=== PATIENT | male | born 1955 | race African-American/Black ===

== ENCOUNTER 2021-02-17 00:28 | Emergency (ER) | payer MEDICARE, SELFPAY ==
[2021-02-17 00:50] VITALS: BP 113/72; PULSE 108; RESP 16; TEMP 37.2; O2SAT 96; BMI 35.6
--- NOTE | 2021-02-17 03:16 | ED_ITS ---
HPI - Male Genitourinary General Chief complaint: Urogenital-Male Stated complaint: cant urinate Time Seen by Provider: 02/17/21 03:13 Source: patient Mode of arrival: ambulatory Limitations: no limitations History of Present Illness HPI Narrative: Patient comes emergency room complaining of taking a long time to urinate. Patient was able to pass urine 30 minutes prior to arrival. Patient states that his urologist started him on Flomax, and has being increasing his dose gradually, however the patient's symptoms keep worsening. Patient denies dysuria or hematuria. Denies penile discharge, testicular pain. Related Data Allergies Allergy/AdvReac Type Severity Reaction Status Date / Time ODIN Inhibitors Allergy Severe ANGIOEDEMA Unverified 03/15/20 14:40 [ODIN INHIBITORS] fish derived Allergy Unknown SWELLING Unverified 03/15/20 14:40 PEANUT BUTTER Allergy Unknown HIVES Uncoded 03/15/20 14:40 Review of Systems Review of Systems: Constitutional : No Weight loss, No Fever, No Chills, No Night Sweats, No Fatigue, No Malaise ENT/Mouth : No Hearing loss, No Ear Pain, No Nasal Congestion, No Sinus Pain, No Hoarseness, No sore throat, No Rhinorrhea, No Swallowing Difficulty Eyes: No Eye Pain, No Swelling, No Redness, No Foreign Body, No Discharge, No Vision Changes Cardiovascular : No Chest Pain, No SOB, No Dyspnea on Exertion, No Orthopnea, No Edema, No Palpitations Respiratory : No Cough, No Sputum, No Wheezing, No Smoke Exposure, No Dyspnea Gastrointestinal : No Nausea, No Vomiting, No Diarrhea, No Constipation, No abdominal Pain, No Hematochezia, No Melena Genitourinary :No Dysuria, No Urinary Frequency, No Hematuria, No Urinary Incontinence, No Urgency, No Flank Pain, gradually becoming harder to start a urinary flow Musculoskeletal : No joint pain, No Myalgias, No Joint Swelling Skin : No Skin Lesions, No rash Neuro : No Weakness, No Numbness, No Paresthesias, No Loss of Consciousness, No Dizziness, No Headache Psych : No Anxiety/Panic, No Depression, No SI/HI/AH/VH, No Social Issues, Heme/Lymph: No Bruising, No Bleeding,No Lymphadenopathy Endocrine : No Polyuria, No Polydipsia, No Temperature Intolerance FOR[facility]LY [facility] Past Medical History Medical History (Updated 08/22/21 @ 05:25 by Nichole Retana MD) BPH (benign prostatic hyperplasia) Social History Social History Advance Directives: No Advance Directives Information Provided: Yes Physical Exam Vital Signs: Vital Signs: Last Vital Signs Temp 98.9 F 02/17/21 00:50 Pulse 108 H 02/17/21 00:50 Resp 16 02/17/21 00:50 BP 113/72 02/17/21 00:50 Pulse Ox 96 02/17/21 00:50 Body Mass Index 35.6 Const: Other: Appearance: Alert. Oriented X3. No acute distress. Eyes: Pupils equal, round and reactive to light. ENT: Pharynx normal. Neck: Normal inspection. Neck supple. No lymph nodes noted. No crepitus CVS: Normal heart rate and rhythm. Pulses normal. Normal S1 and S2 Respiratory: No respiratory distress. Breath sounds normal. No Wheezing. No rales Abdomen: Soft and nontender. No rigidity. No distention. good BS x4 Skin: Skin warm and dry. Normal skin color. Normal skin turgor. Extremities: No lower extremity edema. No Lacerations. No Rash Neuro: Oriented X 3. No motor deficit. No sensory deficit. Moving all extermities. No slurred speech. Course Course Course Narrative: Patient is already taking tamsulosin. Patient is able to urinate every couple of hours. Patient does not have abdominal pain. Patient does move from [place]. Patient needs a urologist. I discussed with the patient that it is likely that he will need a TURP MDM - Male Genitourinary Lab Data Labs: Lab Results 02/17/21 Range/Units 04:48 Urine Color YELLOW Urine Appearance CLEAR Urine pH 6.0 (5.0-8.0) Ur Specific [place] 1.025 (1.005-1.025) Urine Protein NEG (NEG-TRACE) MG/DL Urine Glucose (UA) NEG (NEG) MG/DL Urine Ketones NEG (NEG) MG/DL Urine Blood NEG (NEG) Urine Nitrite NEG (NEG) Ur Leukocyte Esterase NEG (NEG) Discharge Plan Discharge Clinical Impression: Benign prostatic hyperplasia Qualifiers: Lower urinary tract symptom detail: unspecified Patient Disposition: Home, Self-Care Instructions: Enlarged Prostate (BPH) (ED) Additional Instructions: Please follow-up with your primary care physician tomorrow. If you have any worsening or new symptoms, please return to the emergency room or call 911 Referrals: Jared Baldwin MD [Physician] - 2 days
[2021-02-17 04:53] LABS: Glucose Urine UA NEG (NEG); Leukocyte Esterase Urine NEG (NEG); Nitrite Urine NEG (NEG); Specific Gravity - Urine 1.025 (1.005-1.025); Urine Blood NEG (NEG); Urine Ketones NEG (NEG); Urine Protein NEG (NEG-TRACE)
[2021-02-17 04:58] LABS: Appearance Urine CLEAR; Color Urine YELLOW
[2021-02-17 06:00] VITALS: BP 138/80; PULSE 88; RESP 16; O2SAT 100
== END 2021-02-17 06:04 | disposition home or self-care (01) ==
PROVIDERS: Emergency Provider Emergency Medicine
DX: N40.0 Benign prostatic hyperplasia without lower urinary tract symptoms (principal); R33.9 Retention of urine, unspecified
CPT/HCPCS: 51798; 81003; 99284

== ENCOUNTER → 2021-03-22 09:12 | Outpatient (BNVA) | payer MEDICARE, SELFPAY | PROVIDERS: Visit Provider Urology | DX: N40.1 Benign prostatic hyperplasia with lower urinary tract symptoms (principal); R39.12 Poor urinary stream | CPT/HCPCS: 51798; 99202 ==

== ENCOUNTER → 2021-06-20 10:24 | Outpatient (BNVA) | payer MEDICARE, SELFPAY | PROVIDERS: Visit Provider Urology | DX: N40.0 Benign prostatic hyperplasia without lower urinary tract symptoms (principal); R39.12 Poor urinary stream | CPT/HCPCS: 51798; 99212 ==

== ENCOUNTER → 2021-07-24 11:07 | Outpatient (BNVA) | payer BC, SELFPAY | PROVIDERS: Visit Provider Urology | DX: N40.1 Benign prostatic hyperplasia with lower urinary tract symptoms (principal); R39.12 Poor urinary stream | CPT/HCPCS: 52000; 99212 ==

== ENCOUNTER 2021-07-29 12:21 | Emergency (ER) | payer MEDICARE, SELFPAY ==
--- NOTE | ~2021-07-29 | XR_ITS ---
EXAMINATION: XR SHOULDER, LEFT CLINICAL INFORMATION: Left shoulder pain. No injury. COMPARISON: None TECHNIQUE: AP external rotation, Grashey, scapular Y, and axillary views of the left shoulder. FINDINGS: The bones and soft tissues are normal. No fracture. Glenohumeral and acromioclavicular alignment is anatomic with normal joint space. No abnormal soft tissue calcifications. XR/XR shoulder LT min 2V IMPRESSION: Unremarkable left shoulder exam
[2021-07-29 13:41] VITALS: BP 124/77; PULSE 91; RESP 18; TEMP 37; O2SAT 99; BMI 40.1
--- NOTE | 2021-07-29 14:05 | ED_ITS ---
HPI - Extremity Problem General Chief complaint: Extremity Injury, Upper Stated complaint: l arm pain Time Seen by Provider: 07/29/21 16:37 Source: patient Mode of arrival: ambulatory Limitations: no limitations History of Present Illness HPI Narrative: 65-year-old male presents to ED for left shoulder pain that is worse on movement. Patient states he came to the ED for evaluation of left shoulder pain that was present for the past 2 weeks radiating down his left arm last night brizuela resolved. Patient presently denies any radiating shoulder pain down his arm. Patient states presently pain is only in shoulder. Patient denies having any chest pain or shortness of breath. Patient denies any swelling of the upper extremity, hotness, redness, coolness, bluish black discoloration, any blunt trauma to the area. Related Data Home Medications Medication Instructions Recorded Confirmed tamsulosin 0.4 mg capsule (Flomax) 0.8 mg PO DAILY 03/22/21 Previous Rx's Medication Instructions Recorded finasteride 5 mg tablet 5 mg PO DAILY 90 Days #90 tab 03/22/21 terazosin 10 mg capsule 10 mg PO BEDTIME 90 Days #90 cap 03/22/21 naproxen 500 mg tablet 500 mg PO BID PRN 10 Days #20 tab 07/29/21 prednisone 20 mg tablet 40 mg PO DAILY 5 Days #10 tab 07/29/21 Allergies Allergy/AdvReac Type Severity Reaction Status Date / Time ODIN Inhibitors Allergy Severe ANGIOEDEMA Verified 07/24/21 11:08 [ODIN INHIBITORS] fish derived Allergy Unknown SWELLING Verified 07/24/21 11:08 PEANUT BUTTER Allergy Unknown HIVES Uncoded 06/20/21 10:56 Review of Systems Verdana 4l Review of Systems: Verdana 4d Left shoulder Verdana 4d pain Verdana 4d Yes all other systems are reviewed and are negative PMFSH Past Medical History Medical History BPH (benign prostatic hyperplasia) Social History Social History Advance Directives: No Advance Directives Information Provided: No Physical Exam Verdana 4l Vital Signs: Verdana 4d Verdana 4d Vital Signs: Verdana 4d Verdana 4Bd Last Vital Signs Verdana 4d Bill Poster Installer New 4d Bill Poster Installer New 4d Temp 98.6 F 07/29/21 13:41 Bill Poster Installer New 4d Pulse 92 07/29/21 17:49 Bill Poster Installer New 4d Resp 18 07/29/21 17:49 BP 147/91 H 07/29/21 17:49 Pulse Ox 100 07/29/21 17:49 BMI result Body Mass Index 40.1 Const: General: cooperative, healthy appearing, comfortable, no acute distress, well developed, alert and awake Orientation/consciousness: patient oriented x3 HENMT: Head: Yes normal to inspection, Yes No palpable skull fracture present, Yes normocephalic and Yes atraumatic Eyes: General: appearance normal, both eyes and all related structures Neck: Neck: Yes normal visual inspection, Yes full ROM, Yes no lymphadenopathy, Yes no meningeal signs, Yes trachea midline, Yes supple, No anterior neck swelling and No tender Chest: Chest palpation & inspection: normal inspection of the chest and normal palpation of entire chest wall Resp: Effort & Inspection: normal respiratory effort and able to speak in complete sentences Auscultation: clear to auscultation bilaterally Cardio: Jugular venous distension: no JVD Heart sounds: S1 normal heart sound present and S2 normal heart sound present GI: Inspection: Yes normal to inspection and No abdominal wall ecchymosis Palpation (GI): Soft to palpation, not firm, nontender, no guarding and not rigid : General: No CVA tenderness and Yes no CVA tenderness Back/Spine/Pelvis: Back: no CVA tenderness, No CVA tenderness and No back tenderness Skin: General skin exam: no rashes or lesions noted and elasticity normal Neuro: General: patient oriented x3, gait normal, tone normal and no meningeal signs Cranial nerves: Yes CN's II-XII intact bilaterally Extrem: General: Yes normal to inspection and Yes full ROM Shoulder/upper arm images: 1. Positive for tenderness on palpation and range of motion. Left upper extremity negative for redness, swelling, coldness, ecc hymosis, bluish black discoloration, hotness, or deformity. Motor/neuro/vascular exam of left upper extremity intact Psych: Appearance: grossly normal, well kempt and not disheveled Course Course Course Narrative: Most likely patient symptoms are due to showed arthritis but will do cardiac evaluation including shoulder x-ray Reevaluation(s) Reevaluation #1: EKG negative STEMI. Patient's troponin came back negative. Patient sleeping in bed comfortably. Lab shows mild CASPER. Patient prefer oral hydration over IV liquid and then agreeable for repeat chemistry. Time: 14:46 Reevaluation #2: Still waiting for repeat Chemistry. Case signed out to DESEAN gilbert to follow repeat chemistry. Troponin negative after having left shoulder pain for 3 weeks. Not suspecting PE Time: 18:16 MDM - Extremity (Nontraumatic) Lab Data Result diagrams: 07/29/21 14:46 07/29/21 14:46 Labs: Lab Results 07/29/21 07/29/21 07/29/21 Range/Units 14:46 14:46 14:46 WBC 6.6 (4.8-10.8) X10*3/uL RBC 4.94 (4.60-5.80) X10*6/uL Hgb 14.7 (14.0-18.0) g/dl Hct 45.6 (42.0-52.0) % MCV 92.3 (80.0-98.0) fL MCH 29.8 (27.0-33.0) pg MCHC 32.2 (31.0-36.0) g/dl RDW 14.6 (11.0-16.0) % Plt Count 232 (160-400) X10*3/uL MPV 8.5 L (9.4-12.4) fL Immature Gran % (Auto) 0.2 (0.0-0.4) % Neut % (Auto) 57.9 (45-73) % Lymph % (Auto) 25.2 (20-40) % Cache % (Auto) 13.0 H (2-11) % Eos % (Auto) 3.4 (0-4) % Baso % (Auto) 0.3 (0-2) % Lymph # (Auto) 1.7 (1.2-4.9) X10*3/uL Cache # (Auto) 0.9 (0.1-1.2) X10*3/uL Eos # (Auto) 0.2 (0.0-0.4) X10*3/uL Baso # (Auto) 0.0 (0.0-0.2) X10*3/uL Abs Immat Gran (auto) 0.01 (0.00-0.03) X10*3/uL Absolute Neuts (auto) 3.8 (2.0-8.3) x10*3/uL Absolute Nucleated RBC 0.000 (0.0-0.012) X10*3/uL Nucleated RBC % (auto) 0.0 (0.0-0.2) /100WBC PT 10.1 (9.9-13.0) SEC INR 0.9 (0.9-1.1) APTT 32.6 (24.1-38.0) SEC Sodium 139 (135-145) mmol/L Potassium 3.7 (3.3-5.1) mmol/L Chloride 106 (96-108) mmol/L Carbon Dioxide 26 (22-29) mmol/L Anion Gap 11 L (12-20) BUN 20 H (9-16) mg/dL Creatinine 1.65 H (0.5-1.4) mg/dL Estim Creat Clear Calc 60.5 Estimated GFR 42 Random Glucose 121 H (60-115) mg/dL Calcium 9.6 (8.4-10.2) mg/dL Total Bilirubin 0.2 (0.0-1.0) mg/dL AST 12 (5-37) U/L ALT 9 (0-40) U/L Alkaline Phosphatase 80 (39-117) U/L Troponin I High Sens (<3.5-35.0) ng/L Total Protein 7.6 (6.5-8.0) g/dL Albumin 4.0 (3.5-5.0) g/dL 07/29/21 Range/Units 14:46 WBC (4.8-10.8) X10*3/uL RBC (4.60-5.80) X10*6/uL Hgb (14.0-18.0) g/dl Hct (42.0-52.0) % MCV (80.0-98.0) fL MCH (27.0-33.0) pg MCHC (31.0-36.0) g/dl RDW (11.0-16.0) % Plt Count (160-400) X10*3/uL MPV (9.4-12.4) fL Immature Gran % (Auto) (0.0-0.4) % Neut % (Auto) (45-73) % Lymph % (Auto) (20-40) % Cache % (Auto) (2-11) % Eos % (Auto) (0-4) % Baso % (Auto) (0-2) % Lymph # (Auto) (1.2-4.9) X10*3/uL Cache # (Auto) (0.1-1.2) X10*3/uL Eos # (Auto) (0.0-0.4) X10*3/uL Baso # (Auto) (0.0-0.2) X10*3/uL Abs Immat Gran (auto) (0.00-0.03) X10*3/uL Absolute Neuts (auto) (2.0-8.3) x10*3/uL Absolute Nucleated RBC (0.0-0.012) X10*3/uL Nucleated RBC % (auto) (0.0-0.2) /100WBC PT (9.9-13.0) SEC INR (0.9-1.1) APTT (24.1-38.0) SEC Sodium (135-145) mmol/L Potassium (3.3-5.1) mmol/L Chloride (96-108) mmol/L Carbon Dioxide (22-29) mmol/L Anion Gap (12-20) BUN (9-16) mg/dL Creatinine (0.5-1.4) mg/dL Estim Creat Clear Calc Estimated GFR Random Glucose (60-115) mg/dL Calcium (8.4-10.2) mg/dL Total Bilirubin (0.0-1.0) mg/dL AST (5-37) U/L ALT (0-40) U/L Alkaline Phosphatase (39-117) U/L Troponin I High Sens 3.8 (<3.5-35.0) ng/L Total Protein (6.5-8.0) g/dL Albumin (3.5-5.0) g/dL Discharge Plan Discharge Clinical Impression: Left shoulder pain, Acute kidney insufficiency Patient Disposition: Still a Patient Instructions: Impaired Kidney Function (ED), Shoulder Pain (ED) Additional Instructions: Your EKG, and blood work for heart attack came back negative. His shoulder pain persists will need MRI to see if there is any nerve impingement or ligament/rotator cuff/other shoulder muscle injury. You be discharged with pain medication and steroids. Return to the ED for any chest pain, shortness of breath, numbness of left upper extremity, coughing up blood, weakness, dizziness, facial droop, bluish black discoloration, redness, hotness, coldness, paralysis of extremity, or any other concerning symptoms. Please follow-up with primary care provider. Drink plenty of fluids to improve kidney function. Prescriptions: New naproxen 500 mg tablet 500 mg PO BID PRN (Reason: pain) 10 Days Qty: 20 0RF prednisone 20 mg tablet 40 mg PO DAILY 5 Days Qty: 10 0RF No Action tamsulosin [Flomax] 0.4 mg capsule 0.8 mg PO DAILY 0RF finasteride 5 mg tablet 5 mg PO DAILY 90 Days Qty: 90 1RF terazosin 10 mg capsule 10 mg PO BEDTIME 90 Days Qty: 90 1RF Print Language: Maltese
--- NOTE | 2021-07-29 14:08 | ECG_ITS ---
Test Reason : left shoulder pain radiating down left arm Blood Pressure : / mmHG Vent. Rate : 074 BPM Atrial Rate : 074 BPM P-R Int : 146 ms QRS Dur : 104 ms QT Int : 376 ms P-R-T Axes : 000 -28 -28 degrees QTc Int : 417 ms Normal sinus rhythm Moderate voltage criteria for LVH, may be normal variant ( R in aVL , Royal product ) Nonspecific T wave abnormality Abnormal ECG When compared with ECG of 18-SEP-2013 17:58, Nonspecific T wave abnormality, worse in Inferior leads Referred By: Tyler Gonzales Electronically Signed By:RAMONA LOPEZ
[2021-07-29] MEDS: Ibuprofen 800 MG TABLET PO (14:21)
[2021-07-29] MEDS: predniSONE 20 MG TABLET 60 MG PO (14:21)
[2021-07-29 14:54] LABS: MANUAL DIFF FLAG NO
[2021-07-29 15:08] LABS: Basophils Percent Auto 0.3 % (0-2); Eosinophils Absolute Auto 0.2 X10*3/uL (0.0-0.4); Eosinophils Percent Auto 3.4 % (0-4); Hematocrit 45.6 % (42.0-52.0); Hemoglobin 14.7 g/dl (14.0-18.0); Imm Gran Abs Auto 0.01 X10*3/uL (0.00-0.03); Imm Gran Pct Auto 0.2 % (0.0-0.4); Lymphocytes Absolute Auto 1.7 X10*3/uL (1.2-4.9); Lymphocytes Percent Auto 25.2 % (20-40); Mean Corpuscular HGB Conc 32.2 g/dl (31.0-36.0); Mean Corpuscular Hemoglobin 29.8 pg (27.0-33.0); Mean Corpuscular Volume 92.3 fL (80.0-98.0); Mean Platelet Volume 8.5 fL (9.4-12.4); Monocytes Absolute Auto 0.9 X10*3/uL (0.1-1.2); Neutrophils Absolute Auto 3.8 x10*3/uL (2.0-8.3); Neutrophils Percent Auto 57.9 % (45-73); Platelet Count 232 X10*3/uL (160-400); Red Blood Count 4.94 X10*6/uL (4.60-5.80); Red Cell Distribution Width 14.6 % (11.0-16.0); White Blood Count 6.6 X10*3/uL (4.8-10.8)
[2021-07-29 15:09] LABS: INTERNATIONAL NORM RATIO 0.9 (0.9-1.1); Prothrombin Time 10.1 SEC (9.9-13.0)
[2021-07-29 15:12] LABS: Partial Thromboplastin Time 32.6 SEC (24.1-38.0)
[2021-07-29 15:18] LABS: Alanine Aminotransferase 9 U/L (0-40); Alkaline Phosphatase 80 U/L (39-117); Anion Gap 11 (12-20); Aspartate Amino Transferase 12 U/L (5-37); Bilirubin Total 0.2 mg/dL (0.0-1.0); Blood Urea Nitrogen 20 mg/dL (9-16); Calcium 9.6 mg/dL (8.4-10.2); Carbon Dioxide 26 mmol/L (22-29); Chloride 106 mmol/L (96-108); Creatinine Clr Calc Pharmacy 60.5; Estimated Glomerular Filt Rate 42; Glucose Random 121 mg/dL (60-115); Potassium 3.7 mmol/L (3.3-5.1); Sodium 139 mmol/L (135-145); Total Protein 7.6 g/dL (6.5-8.0)
[2021-07-29 15:23] LABS: Troponin-I High Sensitivity 3.8 ng/L (<3.5-35.0)
--- NOTE | 2021-07-29 16:10 | PC.NURSE ---
PT GIVEN 3 WATER PITCHERS AND ENCOURAGED TO DRINK FLUIDS SO WE CAN THEN RECHECK KIDNEY FUNCTION LABS.
[2021-07-29 17:49] VITALS: BP 147/91; PULSE 92; RESP 18; O2SAT 100
--- NOTE | 2021-07-29 18:27 | PC.NURSE ---
UNABLE TO DRAW LABS. WAITING FOR PCT TO COME DRAW.
[2021-07-29 19:41] LABS: Alanine Aminotransferase 12 U/L (0-40); Albumin Level 4.3 g/dL (3.5-5.0); Alkaline Phosphatase 83 U/L (39-117); Anion Gap 13 (12-20); Aspartate Amino Transferase 13 U/L (5-37); Bilirubin Total 0.3 mg/dL (0.0-1.0); Blood Urea Nitrogen 18 mg/dL (9-16); Calcium 9.7 mg/dL (8.4-10.2); Carbon Dioxide 26 mmol/L (22-29); Chloride 102 mmol/L (96-108); Estimated Glomerular Filt Rate 47; Glucose Random 168 mg/dL (60-115); Potassium 4.3 mmol/L (3.3-5.1); Sodium 137 mmol/L (135-145)
== END 2021-07-29 20:04 | disposition home or self-care (01) ==
PROVIDERS: Physician Assistant; Emergency Provider Emergency Medicine
DX: M25.512 Pain in left shoulder (principal); N17.9 Acute kidney failure, unspecified
CPT/HCPCS: 36415; 73030; 80053; 84484; 85025; 85610; 85730; 93005; 99283; 99284

== ENCOUNTER → 2021-08-26 09:34 | Day surgery (SDC) | payer MEDICARE, BC, SELFPAY ==
[2021-08-16 13:11] VITALS: BMI 35.2
--- NOTE | 2021-08-23 12:18 | P.CONAN_ITS ---
HPI - Anesthesia Eval Consult details Narrative: Cx'd DOS d/t recent drug use. 65yo M for Laser Ablation Prostate w/Green Light PMFSH Active Problems Active Problems: All Active Problems (Updated 08/16/21 @ 13:20 by Katlyn Walker, RN) Weak urinary stream (Acute) BPH (benign prostatic hyperplasia) (Acute) Past Medical History Medical History (Updated 09/03/21 @ 10:37 by Katlyn Walker RN) BPH (benign prostatic hyperplasia) History of back pain HTN (hypertension) Hx of drug abuse Hx of tuberculosis Shoulder pain Smoker Tooth ache Surgical History Surgical History (Updated 08/16/21 @ 13:10 by Katlyn Walker RN) History of foot surgery History of shoulder surgery History of umbilical hernia repair Social History Social History Household Members Other:: resides in Room @[facility] Other:: living in a room right now - to go to a hotel post op - per patient Are you a primary direct support professional caregiver to a significant other at home: No Do you presently have visiting nurse or other home services: No Patient Tobacco Use Status: Current everyday Tobacco user Tobacco use type: Cigarette Cigarette Packs Per Day: 0.5 Cigarettes Per Day: 10.0 Years Smoked: 58 Meds Allergies Allergy/AdvReac Type Severity Reaction Status Date / Time ODIN Inhibitors Allergy Severe ANGIOEDEMA Verified 09/03/21 10:38 [ODIN INHIBITORS] fish derived Allergy Unknown SWELLING Verified 09/03/21 10:38 PEANUT BUTTER Allergy Unknown HIVES Uncoded 09/03/21 10:38 Exam Exam Date and Time: August 23, 2021 1218 Height,Weight and Vital Signs: Height 6 ft Weight 117.934 kg Assessment and Plan Assessment Anesthesia Assessment: Chart Reviewed
[2021-08-26 09:53] VITALS: BP 148/87; PULSE 94; RESP 19; TEMP 36.6; O2SAT 98
[2021-08-26] MEDS: Lactated Ringers 1,000 ML 100 ML IVCONT (10:17)
--- NOTE | 2021-08-26 11:30 | PC.NURSE ---
pt is rescheduling sts did crack thursday or thursday and is going to be positive anesthesia and dr woodward aware
== END ==
PROVIDERS: Visit Provider Urology
DX: N40.0 Benign prostatic hyperplasia without lower urinary tract symptoms (principal); Z53.29 Procedure and treatment not carried out because of patient's decision for other reasons
CPT/HCPCS: J1956

== ENCOUNTER → 2022-01-10 11:03 | Outpatient (BNVA) | payer MEDICARE, SELFPAY | PROVIDERS: Visit Provider Urology | DX: N40.1 Benign prostatic hyperplasia with lower urinary tract symptoms (principal); N13.8 Other obstructive and reflux uropathy; R39.12 Poor urinary stream; Z79.899 Other long term (current) drug therapy | CPT/HCPCS: 51798; 99212 ==

== ENCOUNTER → 2022-04-04 10:23 | Outpatient (BNVA) | payer MEDICARE, SELFPAY | PROVIDERS: Visit Provider Urology | DX: N40.1 Benign prostatic hyperplasia with lower urinary tract symptoms (principal); R39.12 Poor urinary stream | CPT/HCPCS: Q3014 ==

== ENCOUNTER → 2022-04-21 06:50 | Day surgery (SDC) | payer MEDICARE, SELFPAY ==
[2022-04-15 13:45] VITALS: BMI 34.9
--- NOTE | 2022-04-18 10:34 | P.CONAN_ITS ---
Documented by User: Elizabeth Montalvo NP 04/18/22 10:34 HPI - Anesthesia Eval Consult details Narrative: 66yo M for Laser Ablation Prostate w/Green Light PMFSH Active Problems Active Problems: All Active Problems (Updated 04/15/22 @ 13:39 by Anjali Painting RN) Weak urinary stream (Acute) BPH (benign prostatic hyperplasia) (Acute) Past Medical History Medical History BPH (benign prostatic hyperplasia) History of back pain HTN (hypertension) Hx of drug abuse Hx of tuberculosis Shoulder pain Smoker Surgical History Surgical History History of foot surgery History of shoulder surgery History of umbilical hernia repair Social History Social History Household Members Other:: lives with sister at this time Housing Other:: living in a room right now - to go to a hotel post op - per p atient Are you a primary care management coordinator to a significant other at home: No Do you presently have visiting nurse or other home services: No Patient Tobacco Use Status: Current everyday Tobacco user Tobacco use type: Cigarette Cigarette Packs Per Day: 0.5 Cigarettes Per Day: 10 Years Smoked: 58 Use of substances other than those prescribed or required for medical reasons: Yes Substance Use Frequency: Weekly Have you been hit, kicked, punched, or otherwise hurt by someone within the past year? If so, by whom?: No Are you DNR?: No Advance Directives: No Advance Directives Information Provided: Yes (brochure mailed) Advance Directives on File: No Recently lost weight without trying: No Eating poorly because of decreased appetite: No Nutrition Risks: No Nutritional Risk Meds Allergies Allergy/AdvReac Type Severity Reaction Status Date / Time ODIN Inhibitors Allergy Severe ANGIOEDEMA Verified 04/04/22 10:25 [ODIN INHIBITORS] fish derived Allergy Intermediate SWELLING Verified 04/15/22 13:32 Peanut Butter Allergy Intermediate Hives Verified 04/15/22 13:32 Home Medications Medication Instructions Recorded Confirmed Last Taken Type albuterol sulfate 90 mcg/actuation 2 puff inhalation Q4H 04/04/22 Unknown History aerosol inhaler Exam Exam Date and Time: April 18, 2022 1034 Height,Weight and Vital Signs: Height 6 ft Weight 117 kg Assessment and Plan Assessment Anesthesia Assessment: Chart Reviewed Documented by User: Asher Tidwell MD 04/21/22 07:39 PMFSH Past Medical History Medical History BPH (benign prostatic hyperplasia) History of back pain HTN (hypertension) Hx of drug abuse Hx of tuberculosis Shoulder pain Smoker Family History Family history of problems with anesthesia: No Surgical History Surgical History History of foot surgery History of shoulder surgery History of umbilical hernia repair History of Problems with Anesthesia: No Social History Social History Household Members Other:: lives with sister at this time Housing Other:: living in a room right now - to go to a hotel post op - per patient Are you a primary care management coordinator to a significant other at home: No Do you presently have visiting nurse or other home services: No Patient Tobacco Use Status: Current everyday Tobacco user Tobacco use type: Cigarette Cigarette Packs Per Day: 0.5 Cigarettes Per Day: 10 Years Smoked: 58 Use of substances other than those prescribed or required for medical reasons: Yes Substance Use Frequency: Weekly Have you been hit, kicked, punched, or otherwise hurt by someone within the past year? If so, by whom?: No Are you DNR?: No Advance Directives: No Advance Directives Information Provided: Yes (brochure mailed) Advance Directives on File: No Recently lost weight without trying: No Eating poorly because of decreased appetite: No Nutrition Risks: No Nutritional Risk Meds Allergies Allergy/AdvReac Type Severity Reaction Status Date / Time ODIN Inhibitors Allergy Severe ANGIOEDEMA Verified 04/04/22 10:25 [ODIN INHIBITORS] fish derived Allergy Intermediate SWELLING Verified 04/15/22 13:32 Peanut Butter Allergy Intermediate Hives Verified 04/15/22 13:32 Home Medications Medication Instructions Recorded Confirmed Last Taken Type albuterol sulfate 90 mcg/actuation 2 puff inhalation Q4H 04/04/22 Unknown History aerosol inhaler Exam Airway Mallampati Class: III TM Dist: >3cm Neck ROM: Full Loose/Missing/Broken Teeth: No Heart: rrr Lungs: clear Assessment and Plan Final Anesthetic Review Family History of Problems with Anesthesia: No History of Problems with Anesthesia: No NPO: Yes ASA Class: II Final Preanesthetic Review: Meds/Allgs Chart Reviewed and Anes Risks/Benef Reviewed Patient Risk: Intermediate Procedure Risk: Low Anesthetic Plan Anesthetic Plan: GA Disposition: Standard PACU
[2022-04-21 07:09] VITALS: BP 171/80; PULSE 62; RESP 18; TEMP 36.4; O2SAT 98
--- NOTE | 2022-04-21 07:13 | PC.NURSE ---
pt c/o not feeling well. denied sob luings clear bilat nasal congestion.
[2022-04-21 07:15] VITALS: BMI 28.2
--- NOTE | 2022-04-21 07:20 | MHC.SHP ---
Pre-Procedural Eval Section A Date of Service: 04/21/22 The patient is an INPATIENT: No Changes since office visit: No Cold of Flu in the past 2 weeks, No New Medical Problems, No Changes in Medication and No Patient answered all questions The History & Physical has been completed within 30 days and I have reviewed it.: No Section B Chief Complaint: bph Details of Present Illness: Plan for laser prostatetomy Relevant Family History (Specify if Yes): No Relevant Social History: None Present Medications: see Short Stay Collaborative assessment Medical History: Significant History History of Previous Operations: No relevant previous surgery Allergies: Allergies Allergy/AdvReac Type Severity Reaction Status Date / Time ODIN Inhibitors Allergy Severe ANGIOEDEMA Verified 04/04/22 10:25 [ODIN INHIBITORS] fish derived Allergy Intermediate SWELLING Verified 04/15/22 13:32 Peanut Butter Allergy Intermediate Hives Verified 04/15/22 13:32 Review of Systems Sugical H&P ROS: Negative: Constitution, Cardiovascular, Respiratory, Neurological, Psychiatric, Hem-Onc, Allergic/Immunologic, Gastrointestinal, Genitourinary, Musculoskeletal, Integumentary, Endocrine and Eyes/Ears/Nose/Throat Exam Surgical H&P Exam: Normal: HEENT, Normal: Heart, Normal: Lungs, Normal: Extremities, Normal: Abdomen, Normal: Skin and Normal: Neurological Plan Diagnosis/Plan: Unchanged (laqser prostatectomy) I have reviewed the history and physical and performed a pertinent physical examination on my patient. No changes have occurred unless specified.
[2022-04-21] MEDS: Lactated Ringers 1,000 ML 100 ML IVCONT (07:40)
[2022-04-21 07:52] LABS: COVID-19 Test Invalid (Negative); IDNOW Serial# 16C4AD1C
--- NOTE | 2022-04-21 07:55 | PC.NURSE ---
call placed to chemistry for estimated time of utox & covid sample results. invalid x 2 separate trials. pt re-swabbed & personally hand carried to lab. Dr. Tidwell aware.
[2022-04-21 08:27] LABS: Amphetamine Screen Urine Not Detected (Not Detect); Barbiturates, Urine Not Detected (Not Detect); Benzodiazepines Screen Urine Not Detected (Not Detect); Cannabinoid Screen Urine Not Detected (Not Detect); Cocaine Screen Urine POSITIVE (Not Detect); Fentanyl, urine POSITIVE (Not Detect); Opiate Screen Urine Not Detected (Not Detect); Phencyclidine Screen Urine Not Detected (Not Detect)
[2022-04-21 08:37] LABS: COVID-19 Test Invalid (Negative)
--- NOTE | 2022-04-21 09:01 | PC.NURSE ---
0830, utox + fentanyl +cocaine. Dr. Tidwell/anesthesia spoke with pt. case cancelled. pt self removed iv - bleeding. dsd applied & escorted out.
== END ==
PROVIDERS: Anesthesiology; Nurse Practitioner; Visit Provider Urology
DX: N40.1 Benign prostatic hyperplasia with lower urinary tract symptoms (principal); Z53.8 Procedure and treatment not carried out for other reasons; R39.12 Poor urinary stream; F14.10 Cocaine abuse, uncomplicated; Z79.899 Other long term (current) drug therapy; Z20.822 Contact with and (suspected) exposure to COVID-19
CPT/HCPCS: 80307; 87635; J1100; J1956; J2250; J2405; J3010

== ENCOUNTER → 2022-11-26 15:25 | Outpatient (BNVA) | payer MEDICARE, SELFPAY | PROVIDERS: Visit Provider Urology ==

== ENCOUNTER 2023-04-05 19:59 | Emergency (ER) | payer OTHER, SELFPAY ==
[2023-04-05 20:16] VITALS: BP 130/89; PULSE 85; O2SAT 96
[2023-04-05 20:17] VITALS: BP 145/55; PULSE 76; RESP 20; TEMP 36.9; O2SAT 96; BMI 37.0
[2023-04-05 21:14] VITALS: BP 152/70; PULSE 76; RESP 16; TEMP 36.8; O2SAT 94
--- NOTE | 2023-04-05 21:17 | ED.OVERDOSE ---
HPI - Overdose General Chief Complaint: Overdose Stated Complaint: overdose, pt stated smoked crack laced, per ems Time Seen by Provider: 04/05/23 21:13 Source: patient and EMS Mode of arrival: EMS Limitations: no limitations History of Present Illness HPI Narrative: 67-year-old male came in by ambulance after was found in his car unresponsive. Patient was given Narcan 4 mg by police and was transported to the hospital. Patient here admit to using cocaine by sniffing, no CP or SOB. Patient now is arousable answering question has no CP, no SOB, no abdominal pain, no SI, no HI. Patient would like to be discharged on to his friend's house. Related Data Home Medications Medication Instructions Recorded Confirmed albuterol sulfate 90 mcg/actuation 2 puff inhalation Q4H 04/04/22 05/05/22 aerosol inhaler Previous Rx's Medication Instructions Recorded tamsulosin 0.4 mg capsule (Flomax) 0.4 mg PO DAILY #30 caps 08/23/21 finasteride 5 mg tablet 5 mg PO DAILY 90 days #90 tabs 01/10/22 terazosin 10 mg capsule 10 mg PO BEDTIME 90 days #90 caps 02/06/23 Allergies Allergy/AdvReac Type Severity Reaction Status Date / Time ODIN Inhibitors Allergy Severe ANGIOEDEMA Verified 04/04/22 10:25 [ODIN INHIBITORS] fish derived Allergy Intermediate SWELLING Verified 04/15/22 13:32 Peanut Butter Allergy Intermediate Hives Verified 04/15/22 13:32 Review of Systems Review of Systems: All other systems are reviewed and are negative Constitutional: Reports as per HPI and Reports no additional constitutional complaints Eyes: Reports as per HPI and Reports no additional eye complaints Reports system reviewed and no additional complaints, except as documented Cardiovascular: Reports as per HPI and Reports no additional cardiovascular complaints Respiratory: Reports as per HPI and Reports no additional respiratory complaints Gastrointestinal: Reports as per HPI and Reports no additional gastrointestinal complaints Genitourinary: Reports no additional female genitourinary complaints Musculoskeletal: Reports no additional musculoskeletal complaints Skin/Breast: Reports system reviewed and no additional complaints, except as docu Psychiatric: Reports no additional psychiatric complaints Endocrine: Reports no additional endocrine complaints Hematologic/Lymphatic: Reports no additional hematologic/lymphatic complaints Allergic/Immunologic: Reports no additional allergic/immunologic complaints Reports system reviewed and no additional complaints, except as documented and Reports Abnormal speech present [facility] Past Medical History Medical History Hx of drug abuse Shoulder pain Smoker Hx of tuberculosis History of back pain HTN (hypertension) BPH (benign prostatic hyperplasia) Surgical History History of umbilical hernia repair History of shoulder surgery History of foot surgery Social History Social History Household Members Other:: lives with sister at this time Housing Other:: living in a room right now - to go to a hotel post op - per patient Are you a primary healthcare management to a significant other at home: No Do you presently have visiting nurse or other home services: No Alcohol intake: current Alcohol intake frequency: 0-2 drinks per day Alcohol type: hard liquor Patient Tobacco Use Status: Current everyday Tobacco user Tobacco use type: Cigarette Cigarette Packs Per Day: 0.5 Cigarettes Per Day: 10 Years Smoked: 58 Substance Use Type: Crack/Cocaine and Heroin Physical Exam Vital Signs: Vital Signs: Last Vital Signs Temp 98.3 F 04/05/23 21:14 Pulse 76 04/05/23 21:14 Resp 16 04/05/23 21:14 BP 152/70 H 04/05/23 21:14 Pulse Ox 94 04/05/23 21:14 O2 Del Method Room Air 04/05/23 21:14 BMI result Body Mass Index 37.0 Vital signs have been reviewed and appear to be correct. Blood pressure elevated. Heart rate normal. Respiratory rate normal. Temperature normal. Oxygen saturation normal. Appearance: Alert. Oriented X3. No acute distress. Head: Normal external exam. Normocephalic. Atraumatic. No Aguilar signs noted. No raccoon eyes noted Eyes: PERRLA. EOMI. Conjunctiva and sclera normal. Eyelids normal. ENT: TM's Normal. Pharynx normal. Uvula midline. Moist mucous membranes. No trismus noted. No drooling noted. No muffled voice noted. Neck: Normal inspection. Neck supple. FROM. No adenopathy. Thyroid Normal. No meningeal signs. No neck mass noted. CVS: Normal heart rate and rhythm. Heart sound normal. No murmurs noted. Pulses normal throughout. Respiratory: No respiratory distress. Painless inspiration. Breath sounds normal. No wheezes/rales/rhonchi noted. Chest nontender. No accessory muscle usage noted or decreased air movement noted. Abdomen: Soft and nontender. Bowel sounds normal in all 4 quadrants. No distention noted. No organomegaly noted. No visible injury noted. Back: No CVA tenderness. Full range of motion noted. Skin: Skin warm and dry. Normal skin color. Normal skin turgor. No rashes/lesions/lacerations noted. Extremities: No lower extremity edema. Extremities exhibit normal range of motion. Extremities nontender. Neuro: Oriented X 3. Cranial nerve exam: II-XII are grossly intact No motor deficit. No sensory deficit. Reflexes normal. Course Course Course Narrative: 67-year-old male came in by ambulance after was found overdosed on his car, patient now is awake, alert, oriented x3 no CP no SOB no SI no HI patient would like to be discharged to his friend's house. Medical Decision Making Differential Diagnosis Differential Diagnoses: The differential diagnosis associated with the presentation includes (Substance abuse, overdose.) Admission/Observation Consideration of admission/observation: Escalation of care including admission/observation considered Discharge Plan Discharge Clinical Impression: Drug overdose, Cocaine intoxication Patient Disposition: Home, Self-Care Instructions: Cocaine Abuse (ED) Prescriptions: No Action tamsulosin [Flomax] 0.4 mg capsule 0.4 mg PO DAILY Qty: 30 0RF terazosin 10 mg capsule 10 mg PO BEDTIME 90 Days Qty: 90 0RF albuterol sulfate 90 mcg/actuation HFA aerosol inhaler 2 puff inhalation Q4H finasteride 5 mg tablet 5 mg PO DAILY 90 Days Qty: 90 1RF
--- NOTE | 2023-04-05 21:20 | PC.NURSE ---
tech able to obtain ekg; attending reviewed.
--- NOTE | 2023-04-05 22:40 | PC.NURSE ---
pt axox4, vss, states had felt not me while driving after using crack. pt states he had pulled over, was not the one to call 911. pt remembers interations here with security/this RN. calm/cooperative at this time. pt denies si/hi; states im done using this is too dangerous. denies questions/concerns at this time. call st within reach.
[2023-04-05 23:42] VITALS: BP 140/60; PULSE 75; RESP 17; O2SAT 92
== END 2023-04-06 00:15 | disposition home or self-care (01) ==
PROVIDERS: Emergency Provider Emergency Medicine
DX: T40.5X1A Poisoning by cocaine, accidental (unintentional), initial encounter (principal); F14.129 Cocaine abuse with intoxication, unspecified; R94.31 Abnormal electrocardiogram [ECG] [EKG]; Y92.9 Unspecified place or not applicable; Z79.899 Other long term (current) drug therapy; F17.210 Nicotine dependence, cigarettes, uncomplicated; Z71.6 Tobacco abuse counseling; Z71.51 Drug abuse counseling and surveillance of drug abuser; Z20.822 Contact with and (suspected) exposure to COVID-19; Z11.52 Encounter for screening for COVID-19
CPT/HCPCS: 0241U; 93005; 99285

== ENCOUNTER 2023-04-23 11:42 | Outpatient (AMB) | payer OTHER, SELFPAY ==
--- NOTE | 2023-04-23 11:50 | MHC.OFFVIS ---
Intake Intake Visit Reasons: Medication follow up/BPH Allergies ODIN Inhibitors [OIDN INHIBITORS] Allergy (Severe, Verified 04/04/22 10:25) ANGIOEDEMA fish derived Allergy (Intermediate, Verified 04/15/22 13:32) SWELLING Peanut Butter Allergy (Intermediate, Verified 04/15/22 13:32) Hives Medication List - Last Reconciled 04/23/23 by Jared Baldwin MD albuterol sulfate 90 mcg/actuation 2 puffs inhalation Q4H finasteride 5 mg PO DAILY 90 days tamsulosin (Flomax) 0.4 mg PO DAILY terazosin 10 mg PO BEDTIME 90 days HPI HPI Comments History of Present Illness Details Ed is a pleasant male. He is seen for following urologic conditions - urinary retention - BPH Telemedicine evaluation 15 minute consultation Novinda martine Video attempted He is up in [place] in area of lockdown Plan procedure had being canceled as he used cocaine prior to surgery Has urologist in [place] Feel stream is getting weaker Needs to take terazosin and finasteride and tamsulosin altogether Check cystoscopy shows large apple shaped prostate with trilobar narrowing refill terazosin Lower urinary tract symptoms Baseline had been on Flomax for many years Seen in emergency room for weakness of stream and partial retention Changed to terazosin 10 mg with finasteride Has persistent symptoms Is currently back living in area as son is going through legal difficulty [facility] Medical History Hx of drug abuse Shoulder pain Smoker Hx of tuberculosis History of back pain HTN (hypertension) BPH (benign prostatic hyperplasia) Surgical History History of umbilical hernia repair History of shoulder surgery History of foot surgery Social History Household Members Other:: lives with sister at this time Housing Other:: living in a room right now - to go to a hotel post op - per patient Are you a primary childcare worker to a significant other at home: No Do you presently have visiting nurse or other home services: No Alcohol intake: current Alcohol intake frequency: 0-2 drinks per day Alcohol type: hard liquor Patient Tobacco Use Status: Current everyday Tobacco user Tobacco use type: Cigarette Cigarette Packs Per Day: 0.5 Cigarettes Per Day: 10 Years Smoked: 58 Substance Use Type: Crack/Cocaine and Heroin Review of Systems Const All systems reviewed & are unremarkable except as noted in HPI and below Reports no additional complaints Resp Reports no additional complaints GI Reports no additional complaints Reports as per HPI Musc Reports no additional complaints Physical Exam Telemedicine evaluation Appropriate responses Regular breathing rate and rhythm HEENT Head: Yes normal to inspection Ears: hearing grossly normal bilaterally Eyes General: appearance normal, both eyes and all related structures Neck Neck: Yes normal visual inspection Chest Chest palpation & inspection: normal inspection of the chest Resp Effort & Inspection: normal respiratory effort and able to speak in complete sentences Assessment & Plan Assessment & Plan (1) BPH (benign prostatic hyperplasia): Code(s): N40.0 - Benign prostatic hyperplasia without lower urinary tract symptoms (2) Weak urinary stream: Code(s): R39.12 - Poor urinary stream Plan renewal provided Medications: Refilled terazosin 10 mg PO BEDTIME 90 caps 0RF 90 days N40.0 - Benign prostatic hyperplasia without lower urinary tract symptoms Patient Instructions: Imaging studies, laboratory and physical exam results were discussed and reviewed in detail. No major barriers to patient understanding were identified. An opportunity to ask questions regarding the treatment plan was provided. All questions were answered. The patient expressed understanding and agreement with the above treatment plan. The patient is aware they should contact our office by phone for worsening of their current condition or the appearance of new urologic symptoms. Compliance is encouraged with any medications and followup testing that is ordered. It is a privilege to participate in the urologic care of your patient. If you have any questions or concerns regarding treatment for the above conditions, or other urologic issues, please do not hesitate to contact me. The office telephone contact is [phone]. This note is constructed using voice recognition software. While every effort has been made to ensure accuracy distribution lead errors may have been included. Yours sincerely, Dr Jared Baldwin MD, [facility] - Urology Providers of Expert, Compassionate Care for the Genitourinary System Telehealth Telehealth Location of provider rendering services: practice address Location of patient: address on file Patient Identification confirmed using: Name, : Yes Telehealth method: voice only Patient verbally consented to treatment: Yes Patient verbally consented to billing insurance company: Yes Patient informed of any privacy concerns related to visit: Yes Coding Level of Care Code Tele Est Pt Level 3 (09612) Diagnoses BPH (benign prostatic hyperplasia) N40.0 Weak urinary stream R39.12
== END 2023-04-23 14:08 | disposition home or self-care (01) ==
LOC: HO.HUSH 11:42
PROVIDERS: Visit Provider Urology
DX: N40.0 Benign prostatic hyperplasia without lower urinary tract symptoms (principal); R39.12 Poor urinary stream
CPT/HCPCS: 99442

== ENCOUNTER → 2023-04-23 11:42 | Outpatient (BNVA) | payer OTHER, SELFPAY | PROVIDERS: Visit Provider Urology ==

== ENCOUNTER 2023-07-24 10:19 | Outpatient (AMB) | payer OTHER, SELFPAY ==
--- NOTE | 2023-07-24 10:42 | A.OFFVIS_ITS ---
Intake Intake Visit Reasons: 3M PVR Intake Note: Patient is Present for Follow Up Urology Medication: Finasteride, Tamsulosin, Terazosin Antibiotic Allergies: none Blood Thinners: None PVR: 21 Patient states that he did not have surgery that was suggested by Dr Baldwin in past due to drug use. Patient states that recently his had . Patient wants to discuss surgery options again and informed that he will be starting detox and will avoid drug use so he can have surgery done Allergies ODIN Inhibitors [ODIN INHIBITORS] Allergy (Severe, Verified 07/24/23 10:43) ANGIOEDEMA fish derived Allergy (Intermediate, Verified 07/24/23 10:43) SWELLING Peanut Butter Allergy (Intermediate, Verified 07/24/23 10:43) Hives Medication List - Last Reconciled 07/24/23 by Jared Baldwin MD albuterol sulfate 90 mcg/actuation 2 puffs inhalation Q4H finasteride 5 mg PO DAILY 90 days tamsulosin (Flomax) 0.4 mg PO DAILY terazosin 10 mg PO BEDTIME 90 days HPI HPI Comments History of Present Illness Details Ed is a pleasant male. He is seen for following urologic conditions - urinary retention - BPH PVR remains low 21 Could continue current medications Plan procedure had being canceled as he used cocaine prior to surgery Has urologist in [place] Feel stream is getting weaker Needs to take terazosin and finasteride and tamsulosin altogether Check cystoscopy shows large apple shaped prostate with trilobar narrowing Lower urinary tract symptoms Baseline had been on Flomax for many years Seen in emergency room for weakness of stream and partial retention Changed to terazosin 10 mg with finasteride Has persistent symptoms Is currently back living in area as son is going through legal difficulty [facility] Medical History Hx of drug abuse Shoulder pain Smoker Hx of tuberculosis History of back pain HTN (hypertension) BPH (benign prostatic hyperplasia) Surgical History History of umbilical hernia repair History of shoulder surgery History of foot surgery Social History Household Members Other:: lives with sister at this time Housing Other:: living in a room right now - to go to a hotel post op - per patient Are you a primary critical care unit nurse to a significant other at home: No Do you presently have visiting nurse or other home services: No Alcohol intake: current Alcohol intake frequency: 0-2 drinks per day Alcohol type: hard liquor Patient Tobacco Use Status: Current everyday Tobacco user Tobacco use type: Cigarette Cigarette Packs Per Day: 0.5 Cigarettes Per Day: 10 Years Smoked: 58 Substance Use Type: Crack/Cocaine and Heroin Review of Systems Const Denies chills and Denies fever(s) Card Reports no additional complaints and Denies syncope Resp Denies cough GI Denies abdominal pain and Denies heartburn Reports as per HPI and Denies change in libido Neuro Denies syncope Psych Denies change in libido Endo Denies change in libido Physical Exam Const General: cooperative, healthy appearing, comfortable and no acute distress Orientation/consciousness: patient oriented x3 HEENT Face and sinus: Yes normal facial exam Mouth: moist mucous membranes Neck Neck: Yes normal visual inspection, Yes full ROM and Yes trachea midline Chest Chest palpation & inspection: normal inspection of the chest Resp Effort & Inspection: normal respiratory effort, able to speak in complete sentences and no respiratory distress GI Inspection: Yes normal to inspection Back/Spine/Pelvis Cervical Spine: normal cervical lordosis Thoracic/Lumbar Spine: thoracic and lumbar spine normal to inspection Skin General skin exam: no rashes or lesions noted Neuro General: patient oriented x3, gait normal, tone normal and moves all extremities Extrem General: Yes normal to inspection and Yes capillary refill normal Office Procedures Post Void Residual Post Residual Void Post Void Residual (PVR): 21 [id number] Void Residual by ultrasound Assessment & Plan Assessment & Plan (1) BPH (benign prostatic hyperplasia): Code(s): N40.0 - Benign prostatic hyperplasia without lower urinary tract symptoms (2) Weak urinary stream: Code(s): R39.12 - Poor urinary stream Plan Six month follow-up PSA PVR Orders: Orders PSA,Total (Free>4and<10) 6 Months N40.0 - Benign prostatic hyperplasia without lower urinary tract symptoms AMB Post Void Residual by ultrasound 07/24/23 N40.0 - Benign prostatic hyperplasia without lower urinary tract symptoms Patient Instructions: Imaging studies, laboratory and physical exam results were discussed and reviewed in detail. No major barriers to patient understanding were identified. An opportunity to ask questions regarding the treatment plan was provided. All questions were answered. The patient expressed understanding and agreement with the above treatment plan. The patient is aware they should contact our office by phone for worsening of their current condition or the appearance of new urologic symptoms. Compliance is encouraged with any medications and followup testing that is ordered. It is a privilege to participate in the urologic care of your patient. If you have any questions or concerns regarding treatment for the above conditions, or other urologic issues, please do not hesitate to contact me. The office telephone contact is [phone]. This note is constructed using voice recognition software. While every effort has been made to ensure accuracy call center support representative errors may have been included. Yours sincerely, Dr Jared Baldwin MD, [facility] - Urology Providers of Expert, Compassionate Care for the Genitourinary System Coding Level of Care Code Est Pt Level 3 (72914) Diagnoses BPH (benign prostatic hyperplasia) N40.0 Weak urinary stream R39.12 CPT Codes Post Residual Void - PVR CPT Code: 17604-[id number] Void Residual by ultrasound ([id number])
== END 2023-07-24 11:25 | disposition home or self-care (01) ==
PROVIDERS: Visit Provider Urology
DX: N40.0 Benign prostatic hyperplasia without lower urinary tract symptoms (principal); R39.12 Poor urinary stream
CPT/HCPCS: 99213

== ENCOUNTER → 2023-07-24 10:19 | Outpatient (BNVA) | payer OTHER, SELFPAY | PROVIDERS: Visit Provider Urology | DX: N40.1 Benign prostatic hyperplasia with lower urinary tract symptoms (principal); R39.12 Poor urinary stream | CPT/HCPCS: 51798; 99212 ==

== ENCOUNTER 2024-02-16 11:08 | Emergency (ER) | payer OTHER, SELFPAY ==
[2024-02-16 11:26] VITALS: BP 141/85; PULSE 96; RESP 18; TEMP 37; O2SAT 97; BMI 36.1
--- NOTE | 2024-02-16 11:29 | ED.GENADULT ---
HPI - General Adult General Stated complaint: Fall 12/19 - back pain Related Data Home Medications ?Medication ?Instructions ?Recorded ?Confirmed albuterol sulfate 90 mcg/actuation 2 puff inhalation Q4H 04/04/22 07/24/23 aerosol inhaler Previous Rx's ?Medication ?Instructions ?Recorded tamsulosin 0.4 mg capsule (Flomax) 0.4 mg PO DAILY #30 caps 08/23/21 finasteride 5 mg tablet 5 mg PO DAILY 90 days #90 tabs 07/24/23 terazosin 10 mg capsule 10 mg PO BEDTIME 90 days #90 caps 07/24/23 Allergies Allergy/AdvReac Type Severity Reaction Status Date / Time ODIN Inhibitors Allergy Severe ANGIOEDEMA Verified 02/16/24 11:31 [ODIN INHIBITORS] fish derived Allergy Intermediate SWELLING Verified 02/16/24 11:31 Peanut Butter Allergy Intermediate Hives Verified 02/16/24 11:31 PMFSH Past Medical History Medical History Hx of drug abuse Shoulder pain Smoker Hx of tuberculosis History of back pain HTN (hypertension) BPH (benign prostatic hyperplasia) Surgical History History of umbilical hernia repair History of shoulder surgery History of foot surgery Social History Social History Household Members Other:: lives with sister at this time Housing Other:: living in a room right now - to go to a hotel post op - per patient Are you a primary health care social worker to a significant other at home: No Do you presently have visiting nurse or other home services: No Alcohol intake: current Alcohol intake frequency: 0-2 drinks per day Alcohol type: hard liquor Patient Tobacco Use Status: Current everyday Tobacco user Tobacco use type: Cigarette Cigarette Packs Per Day: 0.5 Cigarettes Per Day: 10 Years Smoked: 58 Substance Use Type: Crack/Cocaine and Heroin Course Course Course Narrative: RME, this is a rapid medical exam performed by Lito Auguste please refer to primary provider for complete H&P- 68 year old male presents for evaluation of left lower back pain after a fall 2 months ago. He reports slipping and falling while incarcerated. He reports negative x-rays at [place]. He reports pain to his left lower back radiating down into his left leg. Denies numbness and tingling. He reports difficulty urinating, but admits that has been ongoing since prior to the injury and has not had any change since the injury. He follows with Dr Baldwin. Discharge Plan Discharge Prescriptions: No Action tamsulosin [Flomax] 0.4 mg capsule 0.4 mg PO DAILY Qty: 30 0RF albuterol sulfate 90 mcg/actuation HFA aerosol inhaler 2 puff inhalation Q4H finasteride 5 mg tablet 5 mg PO DAILY 90 Days Qty: 90 1RF terazosin 10 mg capsule 10 mg PO BEDTIME 90 Days Qty: 90 1RF Print Language: Lithuanian
== END 2024-02-16 13:38 | disposition left against medical advice (07) ==
PROVIDERS: Emergency Provider Emergency Medicine
DX: M54.50 Low back pain, unspecified (principal); F17.200 Nicotine dependence, unspecified, uncomplicated; F14.10 Cocaine abuse, uncomplicated; Z79.899 Other long term (current) drug therapy
CPT/HCPCS: 99281

== ENCOUNTER 2024-07-15 13:55 | Outpatient (AMB) | payer MEDICARE, MEDICAID, SELFPAY ==
--- NOTE | 2024-07-15 13:56 | MHC.OFFVIS ---
Intake Visit Reasons: PVR Follow up(Needs PSA) Intake Note: Patient is present for PVR F/U Urology Medication:TAMSULOSIN,FINASTERIDE,TERAZOSIN Antibiotic Allergy:NONE Blood Thinner:NONE Last PVR:21ML'S Todays PVR:28ML'S Toolsmith Required: No Allergies ODIN Inhibitors [ODIN INHIBITORS] Allergy (Severe, Verified 07/15/24 13:58) ANGIOEDEMA fish derived Allergy (Intermediate, Verified 07/15/24 13:58) SWELLING Peanut Butter Allergy (Intermediate, Verified 07/15/24 13:58) Hives HPI Comments Details: Ed is a pleasant male. He is seen for following urologic conditions - urinary retention - BPH PVR remains low 21 Could continue current medications Plan procedure had being canceled as he used cocaine prior to surgery He would like to move ahead with procedure. He has doubling up on terazosin which is causing dizziness. Has urologist in [place] Feel stream is getting weaker Needs to take terazosin and finasteride and tamsulosin altogether Check cystoscopy shows large apple shaped prostate with trilobar narrowing Did ask if could refill his albuterol inhaler Lower urinary tract symptoms Baseline had been on Flomax for many years Seen in emergency room for weakness of stream and partial retention Changed to terazosin 10 mg with finasteride Has persistent symptoms Is currently back living in area as son is going through legal difficulty [facility], [facility] Medical History Hx of drug abuse Shoulder pain Smoker Hx of tuberculosis History of back pain HTN (hypertension) BPH (benign prostatic hyperplasia) Surgical History History of umbilical hernia repair History of shoulder surgery History of foot surgery Social History Household Members Other:: lives with sister at this time Housing Other:: living in a room right now - to go to a hotel post op - per patient Are you a primary health care / medical job titles to a significant other at home: No Do you presently have visiting nurse or other home services: No Alcohol intake: current Alcohol intake frequency: 0-2 drinks per day Alcohol type: hard liquor Patient Tobacco Use Status: Current everyday Tobacco user Tobacco use type: Cigarette Cigarette Packs Per Day: 0.5 Cigarettes Per Day: 10 Years Smoked: 58 Substance Use Type: Crack/Cocaine and Heroin Review of Systems Const Denies chills and Denies fever(s) Card Reports no additional complaints and Denies syncope Resp Denies cough GI Denies abdominal pain and Denies heartburn Reports as per HPI and Denies change in libido Neuro Denies syncope Psych Denies change in libido Endo Denies change in libido Physical Exam Const General: cooperative, healthy appearing, comfortable and no acute distress Orientation/consciousness: patient oriented x3 HEENT Face and sinus: Yes normal facial exam Mouth: moist mucous membranes Neck Neck: Yes normal visual inspection, Yes full ROM and Yes trachea midline Chest Chest palpation & inspection: normal inspection of the chest Resp Effort & Inspection: normal respiratory effort, able to speak in complete sentences and no respiratory distress GI Inspection: Yes normal to inspection Back/Spine/Pelvis Cervical Spine: normal cervical lordosis Thoracic/Lumbar Spine: thoracic and lumbar spine normal to inspection Skin General skin exam: no rashes or lesions noted Neuro General: patient oriented x3, gait normal, tone normal and moves all extremities Extrem General: Yes normal to inspection and Yes capillary refill normal Office Procedures Post Void Residual Post Residual Void Post Void Residual (PVR): 28 [id number] Void Residual by ultrasound Results AMB Urinalysis, Automated UA Leukoctes 0 Lb/uL Last Edit by ILIR Fields on 07/15/24 14:14 UA Nitrite Negative Last Edit by ILIR Fielsd on 07/15/24 14:14 UA Urobilinogen 0.2 mg/dL Last Edit by ILIR Fields on 07/15/24 14:14 UA Protein 15 mg/dL Last Edit by ILIR Fields on 07/15/24 14:14 UA pH 6.0 Last Edit by ILIR Fields on 07/15/24 14:14 UA Blood 10 Rafa/uL Last Edit by ILIR Fields on 07/15/24 14:14 UA Specific [place] 1.020 Last Edit by ILIR Fields on 07/15/24 14:14 UA Ketone Negative Last Edit by ILIR Fields on 07/15/24 14:14 UA Bilirubin 0 mg/dL Last Edit by ILIR Fields on 07/15/24 14:14 UA Glucose 0 mg/dL Last Edit by ILIR Fields on 07/15/24 14:14 Results Reviewed Results Reviewed: Laboratory Last Values Urine pH (Auto) 6.0 07/15/24 14:14 Specific [place] (Auto) 1.020 07/15/24 14:14 Urine Protein (Auto) 15 mg/dL 07/15/24 14:14 Glucose (UA)(Auto) 0 mg/dL 07/15/24 14:14 Urine Ketones (Auto) Negative 07/15/24 14:14 Urine Blood (Auto) 10 Rafa/uL 07/15/24 14:14 Urine Nitrite (Auto) Negative 07/15/24 14:14 Urine Bilirubin (Auto) 0 mg/dL 07/15/24 14:14 Urine Urobilinogen (Auto) 0.2 mg/dL 07/15/24 14:14 Leukocyte Esterase (Auto) 0 Lb/uL 07/15/24 14:14 Assessment & Plan Assessment & Plan (1) BPH (benign prostatic hyperplasia): Code(s): N40.0 - Benign prostatic hyperplasia without lower urinary tract symptoms Category: Medical (2) Weak urinary stream: Code(s): R39.12 - Poor urinary stream Category: Medical Plan Risks, benefits and alternatives to therapy were discussed. These include but are not limited to infection, bleeding, damage to local organs and tissues, need for further interventions. Anesthetic risks regarding cardiac arrhythmia, blood clots, and potential mortality were discussed. The patient understands the typical recovery time and the outpatient nature of the procedure. After consideration of these risks the patient gives full informed consent and they wish to move ahead with the procedure. GreenLight laser prostatectomy Orders: Orders AMB Urinalysis Automated Today Z13.9 - Encounter for screening, unspecified Medications: Changed From albuterol sulfate 90 mcg/actuation 2 puffs inhalation Q4H To albuterol sulfate 90 mcg/actuation 2 puffs inhalation Q4H PRN 6.7 grams 0RF bronchospasm Patient Instructions: Imaging studies, laboratory and physical exam results were discussed and reviewed in detail. No major barriers to patient understanding were identified. An opportunity to ask questions regarding the treatment plan was provided. All questions were answered. The patient expressed understanding and agreement with the above treatment plan. The patient is aware they should contact our office by phone for worsening of their current condition or the appearance of new urologic symptoms. Compliance is encouraged with any medications and followup testing that is ordered. It is a privilege to participate in the urologic care of your patient. If you have any questions or concerns regarding treatment for the above conditions, or other urologic issues, please do not hesitate to contact me. The office telephone contact is [phone]. This note is constructed using voice recognition software. While every effort has been made to ensure accuracy media supervisor errors may have been included. Yours sincerely, Dr Jared Baldwin MD, [facility] - Urology Providers of Expert, Compassionate Care for the Genitourinary System Coding Level of Care Code Est Pt Level 4 (89125) Diagnoses BPH (benign prostatic hyperplasia) N40.0 Weak urinary stream R39.12 CPT Codes Post Residual Void - PVR CPT Code: 96880-Lfyh Void Residual by ultrasound ([id number])
== END 2024-07-15 14:23 | disposition home or self-care (01) ==
LOC: HO.HUSH 13:55
PROVIDERS: Visit Provider Urology
DX: N40.0 Benign prostatic hyperplasia without lower urinary tract symptoms (principal); R39.12 Poor urinary stream; Z13.9 Encounter for screening, unspecified
CPT/HCPCS: 99214

== ENCOUNTER → 2024-07-15 13:55 | Outpatient (BNVA) | payer MEDICARE, MEDICAID, SELFPAY | PROVIDERS: Visit Provider Urology | DX: N40.0 Benign prostatic hyperplasia without lower urinary tract symptoms (principal); R39.12 Poor urinary stream | CPT/HCPCS: 51798; 81003; 99212 ==

== ENCOUNTER 2024-09-19 10:06 | Day surgery (SDC) | payer MEDICARE, MEDICAID, SELFPAY ==
--- OUTSIDE RECORDS SUMMARY | 2024-08-22 12:48 | XMS_ITS | Encounter Summary ---
Author Organization [employer] Address [address] [facility] 7 [place] [address] Care Team Providers Care Transmission Superintendent Name Role Phone Unavailable Primary Care Provider Unavailabl e Reason for Visit * Reason Onset Date Comments medication 06/26/2023 Encounter Details Date Type Department Care Team (Late Contact Info) Description 06/26/2023 Telephone [facility] ADULT DENTAL [address] [place], [place] [phone] Inés Obrien DDS [address] [place], [place] [phone] medication Social History Tobacco Use Types Packs/Day Years Used Date Smoking Tobacco: Some Days Cigarettes Passive Smoke Exposure: Current Alcohol Use Standard Drinks/Week Comments Defer 0 (1 standard drink = 0.6 oz pur e alcohol) Sex and Gender Information Value Date Recorded Sex Assigned at Male 04/28/2022 10:24 AM EDT Legal Sex Male 10:24 AM EDT Gender Identity Choose not to disclose 10:24 AM EDT Sexual Orientation Choose not to disclose 2021 10:24 AM EDT documented as of this encounter Miscellaneous Notes * Telephone Encounter - Courtney De [place] - 06/26/2023 12:39 PM EST Script was sent to the pharmacy that patient had on [facility] [address] in [place]. He stated it should have gone to [facility]. I have updated the pharmacy in patient chart. [facility]sresend to [facility] in [place] documented in this encounter Plan of Treatment Upcoming Encounters Date Type Department Care Team ([facility] Contact [facility]) Description 08/30/2024 3:00 PM EST Office Visit [facility] ADULT DENTAL [address] [place], [place] [phone] Ricardo Martell [address] [place] [id number] documented as of this encounter Visit Diagnoses Not on filedocumented in this encounter
--- OUTSIDE RECORDS SUMMARY | 2024-08-22 12:48 | XMS_ITS | Encounter Summary ---
Author Organization [employer] Address [address] [place] [address] [place] [address] Care Team Providers Care Salesperson [employer] Furnish[employer] Name Role Phone Unavailable Primary Care Provider Unavailabl e Reason for Visit * Reason Onset Date Comments New patient appt. 07/25/2024 Encounter Details Date Type Department Care Team (Late Contact Info) Description 07/25/2024 Telephone [facility] MEDICINE [address] [place] [address] Rik Munguia MD [address] [place] [address] New patient appt. Social History Tobacco Use Types Packs/Day Years [...] encounter Miscellaneous Notes * Telephone Encounter - Norma Toribio - 07/25/2024 3:43 PM EST Outgoing call to pt to book [facility] appt. No answer. Left message. documented in this encounter Plan of Treatment Upcoming Encounters Date Type Department Care Team (Late Contact Info) Description 08/30/2024 3:00 PM EST Office Visit [facility] ADULT DENTAL [address] [place], [place] [phone] Ricardo Martell [address] [place], [place] [phone] documented as of this encounter Visit Diagnoses Not on filedocumented in this encounter
--- OUTSIDE RECORDS SUMMARY | 2024-08-22 12:48 | XMS_ITS | Clinical Summary ---
Author Organization [employer] Address [address] [place] [address] 7 [place] [address] Care Team Providers Care Upkeep Worker Name Role Phone Unavailable Primary Care Provider Unavailabl e Allergies Active Allergy Reactions Criticality Noted Date Comments Flavoring Agent (Non-Screening) 05/30 Fish Allergy 06/26/2023 Peanut Butter Flavoring Agen t (Non-Screening) 06/26/2023 Medications terazosin (Hytrin) 1 MG capsule Take 1 mg by mouth at bedtime. Active Encounters Date Type Department Care Team Description 07/25/2024 [place] [address] Rik Munguia MD New patient appt. 07/19/[address] [address] Rik Munguia MD Appointment Request from Last 3 Months Social History Tobacco Use Types Packs/Day Years Used Date Smoking Tobacco: Some Days Cigarettes Passive Smoke Exposure: Current Tobacco Cessation:Ready to Q uit: Not Asked; Counseling Given: Not Answered Alcohol Use Standard Drinks/Week Comments Defer 0 (1 standard drink = 0.6 oz pur e alcohol) Sex and Gender Information Value Date Recorded Sex Assigned at Male 04/28/2022 10:24 AM EDT Legal Sex Male 10:24 AM EDT Gender Identity Choose not to disclose 10:24 AM EDT Sexual Orientation Choose not to disclose 2021 10:24 AM EDT Last Filed Vital Signs Vital Sign Reading Time Taken Comments Blood Pressure 142/68 10/09/2023 11:06 AM EDT Pulse 76 10/09/2023 11:06 AM EDT Temperature - - Respiratory Rate - - Oxygen Saturation - - Inhaled Oxygen Concentration - - Weight - - Height - - Body Mass Index - - Plan of Treatment Upcoming Encounters Date Type Department Care Team (Late st Contact Info) Description 08/30/2024 3:00 PM EST Office Visit [facility] ADULT DENTAL [address] [place] [address] Ricardo Martell [address] [place] [address] Health Maintenance Due Date Last Done Comments CT Colonography 1956 Colonoscopy 1956 Colorectal Cancer Screening 1956 Depression Screening 1956 FIT DNA/Cologuard 1956 FIT 1956 FOBT 1956 Lipid Panel 1956 SDOH Screening 1956 Sigmoidoscopy 1956 Alcohol/Substance Use Screening 1968 Hepatitis C Screening 1974 DTaP/Tdap/Td Vaccines (1 - Tdap) 09/23/1975 Pneumococcal Vaccine: 50+ Years (1 of 2 - PCV) 09/23/1975 Zoster Vaccines (1 of 2) 2006 COVID-19 Vaccine (1 - 2023-2 5 season) 2024 Influenza Vaccine (#1) 2024 Dental Oral Exam 03/25/2024 2023, 01/07/2012 Dental Prophylaxis 04/10/2024 10/09/2023 Dental X-Ray: Bitewings 2024 2023 Tobacco Screening 11/05/2024 11/06/2023 Dental X-Ray: Full Mouth 2026 2023 RSV Patients and Patients Aged 60 years or older (1 - 1-dose 75+ series) 09/23/2031 HIB Vaccines Aged Out No longer eligi ble based on patient's age to complete this topic HPV Vaccines Aged Out No longer eligi ble based on patient's age to complete this topic Hepatitis A Vaccines Aged Out No long er eligible based on patient's age to complete this topic Hepatitis B Vaccines Aged Out No long er eligible based on patient's age to complete this topic IPV Vaccines Aged Out No longer eligi ble based on patient's age to complete this topic Meningococcal Vaccine Aged Out No kailee katelynn eligible based on patient's age to complete this topic RSV under 20 months Aged Out No longe r eligible based on patient's age to complete this topic Rotavirus Vaccines Aged Out No longer eligible based on patient's age to complete this topic Procedures Procedure Name Priority Date/Time Associated Diagnosis Comments PROPHYLAXIS - ADULT Routine 10/09/2023 1 1:00 AM EDT INTRAORAL - COMPLETE SERIES OF RADIOGRAPHIC IMAGES Routine 2023 11:00 AM EDT COMPREHENSIVE ORAL EVALUATION - NEW OR ESTABLISHED PATIENT Routine 2023 11:00 AM EDT from Last 3 Months or Most Recently Relevant to Health Maintenance Insurance [employer] PPO
[2024-09-15 12:35] VITALS: BMI 35.3
--- NOTE | 2024-09-16 08:58 | HO.ANESPROP2 ---
Documented by User: Elizabeth Montalvo NP 09/16/24 08:59 HPI - Anesthesia Eval Consult details Narrative: 68yo M for Laser Ablation Prostate w/Green Light PMFSH Active Problems Active Problems: All Active Problems Weak urinary stream (Acute) BPH (benign prostatic hyperplasia) (Acute) Past Medical History Medical History (Updated 09/15/24 @ 12:46 by Anjali Painting RN) Back pain Hx of drug abuse Shoulder pain Smoker Hx of tuberculosis HTN (hypertension) BPH (benign prostatic hyperplasia) Family History Family history of problems with anesthesia: No Surgical History Surgical History (Updated 09/15/24 @ 12:34 by Anjali Painting RN) History of umbilical hernia repair History of shoulder surgery History of foot surgery History of Problems with Anesthesia: No Social History Social History (Updated 09/15/24 @ 12:38 by Ajnali Painting RN) Are you a primary home health caregiver to a significant other at home: No Do you presently have visiting nurse or other home services: No Alcohol intake: current Alcohol intake frequency: 0-2 drinks per day Alcohol type: hard liquor Patient Tobacco Use Status: Current everyday Tobacco user Tobacco use type: Cigarette Cigarette Packs Per Day: 0.5 Cigarettes Per Day: 3 Years Smoked: 58 Substance Use Type: Crack/Cocaine, Former Substance User and Heroin Substance Use Type Other:: denies drug use since 2022 Have you been hit, kicked, punched, or otherwise hurt by someone within the past year? If so, by whom?: No Spiritual Healthcare Practices: none Jewish Healthcare Practices: none Cultural Healthcare Practices: none Are you DNR?: No Advance Directives: No Advance Directives Information Provided: Yes Advance Directives on File: No Recently lost weight without trying: No Eating poorly because of decreased appetite: No Nutrition Risks: No Nutritional Risk Poor oral hygiene: Yes (one broken tooth-upper) Meds Allergies Allergy/AdvReac Type Severity Reaction Status Date / Time ODIN Inhibitors Allergy Severe ANGIOEDEMA Verified 07/15/24 13:58 [ODIN INHIBITORS] fish derived Allergy Intermediate SWELLING Verified 07/15/24 13:58 Peanut Butter Allergy Intermediate Hives Verified 07/15/24 13:58 Home Medications ?Medication ?Instructions ?Recorded ?Confirmed ?Last Taken ?Type albuterol sulfate 90 mcg/actuation 2 puff inhalation Q4H PRN 09/15/24 09/15/24 Unknown History aerosol inhaler bronchospasm/smokers cough Exam Height,Weight and Vital Signs: Height 6 ft Weight 117.934 kg Assessment and Plan Assessment Anesthesia Assessment: Chart Reviewed Final Anesthetic Review Family History of Problems with Anesthesia: No History of Problems with Anesthesia: No Documented by User: Terry Mendoza MD 09/19/24 11:00 PMFSH Past Medical History Medical History (Updated 09/15/24 @ 12:46 by Anjali Painting RN) Back pain Hx of drug abuse Shoulder pain Smoker Hx of tuberculosis HTN (hypertension) BPH (benign prostatic hyperplasia) Surgical History Surgical History (Updated 09/15/24 @ 12:34 by Anjali Painting RN) History of umbilical hernia repair History of shoulder surgery History of foot surgery Social History Social History (Updated 09/15/24 @ 12:38 by Anjali Painting RN) Are you a primary home health caregiver to a significant other at home: No Do you presently have visiting nurse or other home services: No Alcohol intake: current Alcohol intake frequency: 0-2 drinks per day Alcohol type: hard liquor Patient Tobacco Use Status: Current everyday Tobacco user Tobacco use type: Cigarette Cigarette Packs Per Day: 0.5 Cigarettes Per Day: 3 Years Smoked: 58 Substance Use Type: Crack/Cocaine, Former Substance User and Heroin Substance Use Type Other:: denies drug use since 2022 Have you been hit, kicked, punched, or otherwise hurt by someone within the past year? If so, by whom?: No Spiritual Healthcare Practices: none Jewish Healthcare Practices: none Cultural Healthcare Practices: none Are you DNR?: No Advance Directives: No Advance Directives Information Provided: Yes Advance Directives on File: No Recently lost weight without trying: No Eating poorly because of decreased appetite: No Nutrition Risks: No Nutritional Risk Poor oral hygiene: Yes (one broken tooth-upper) Meds Allergies Allergy/AdvReac Type Severity Reaction Status Date / Time ODIN Inhibitors Allergy Severe ANGIOEDEMA Verified 07/15/24 13:58 [ODIN INHIBITORS] fish derived Allergy Intermediate SWELLING Verified 07/15/24 13:58 Peanut Butter Allergy Intermediate Hives Verified 07/15/24 13:58 Home Medications ?Medication ?Instructions ?Recorded ?Confirmed ?Last Taken ?Type albuterol sulfate 90 mcg/actuation 2 puff inhalation Q4H PRN 09/15/24 09/15/24 Unknown History aerosol inhaler bronchospasm/smokers cough Exam Airway Mallampati Class: II TM Dist: >3cm Neck ROM: Full Loose/Missing/Broken Teeth: Yes, Upper and Lower Heart: ok Lungs: ok Assessment and Plan Assessment Anesthesia Assessment: Anesthesia Plan Discussed Final Anesthetic Review NPO: Yes ASA Class: III Final Preanesthetic Review: No Changes in Pt Med Stat, Meds/Allgs Chart Reviewed, Consent Obtained/Reviewed and Anes Risks/Benef Reviewed Patient Risk: Intermediate Procedure Risk: Low Anesthetic Plan Anesthetic Plan: GA and Agree w/ Assess. and Plan Disposition: Standard PACU
[2024-09-19] VITALS (7 sets, daily range): BP systolic 124–147; BP diastolic 54–88; PULSE 82–103; RESP 16–20; TEMP 36.6–36.7; O2SAT 97–99; BMI 34.4
[2024-09-19] MEDS: Lactated Ringers 1,000 ML 100 ML IVCONT (10:51)
[2024-09-19 10:53] LABS: Amphetamine Screen Urine Not Detected (Not Detect); Barbiturates, Urine Not Detected (Not Detect); Benzodiazepines Screen Urine Not Detected (Not Detect); Buprenorphine Scr Not Detected (Not Detect); Cannabinoid Screen Urine POSITIVE (Not Detect); Cocaine Screen Urine Not Detected (Not Detect); Fentanyl, urine Not Detected (Not Detect); Methadone Screen, Urine Not Detected (Not Detect); Opiate Screen Urine Not Detected (Not Detect); Oxycodone Screen Urine Not Detected (Not Detect); Phencyclidine Screen Urine Not Detected (Not Detect)
--- NOTE | 2024-09-19 11:00 | P.HPSUR_ITS ---
Pre-Procedural Eval Section A - 24 Hr Update-Section A only Date of Service: 09/19/24 The patient is an INPATIENT: No Changes since office visit: No Cold of Flu in the past 2 weeks, No New Medical Problems, No Changes in Medication and No Patient answered all questions The patient has been examined within 24 hours of the surgical procedure. The History & Physical has been completed within 30 days and I have reviewed it.: No Section B - Complete if H&P > 30 days Chief Complaint: Benign prostatic hyperplasia with lower urinary tr Details of Present Illness: GreenLight laser prostatectomy Relevant Social History: Other (specify) Present Medications: see Short Stay Collaborative assessment Medical History: No relevant PMH History of Previous Operations: No relevant previous surgery Allergies: Allergies Allergy/AdvReac Type Severity Reaction Status Date / Time ODIN Inhibitors Allergy Severe ANGIOEDEMA Verified 07/15/24 13:58 [ODIN INHIBITORS] fish derived Allergy Intermediate SWELLING Verified 07/15/24 13:58 Peanut Butter Allergy Intermediate Hives Verified 07/15/24 13:58 Review of Systems Sugical H&P ROS: Negative: Constitution, Cardiovascular, Respiratory, Neurologi [place], Psychiatric, Hem-Onc, Allergic/Immunologic, Gastrointestinal, Genitourinary, Musculoskeletal, Integumentary, Endocrine and Eyes/Ears/Nose/Throat Exam Surgical H&P Exam: Normal: HEENT, Normal: Heart, Normal: Lungs, Normal: Extremities, Normal: Abdomen, Normal: Skin and Normal: Neurological Plan Diagnosis/Plan: Unchanged (GreenLight laser prostatectomy) I have reviewed the history and physical and performed a pertinent physical examination on my patient. No changes have occurred unless specified. Time Spent With Patient Time: Total time managing care of this patient today ____ minutes.
[2024-09-19] MEDS: ceFAZolin Sodium/Dextrose,Iso 2 GM/50 ML PIGGYBACK IV (11:05)
--- NOTE | 2024-09-19 12:06 | W.PM.OPN ---
Operative Note Operative Note Date of Service: 09/19/24 Narrative: PreOperative Diagnosis: Bladder outlet obstruction Post Operative Diagnosis: Bladder outlet obstruction Procedure: GreenLight Laser Enucleation of the prostate CPT 07108 Surgeon: Dr Jared Baldwin Anesthesia: General History of bladder outlet obstruction. Treated with alpha-pool and other medications. Still with symptoms. On cystoscopy in office has tight bladder neck. Recommendation for prostate procedure with laser enucleation of prostate. Risks and benefits have been discussed. Focus was placed on development of retrograde ejaculation which is a normal part of this procedure. Procedure: After informed consent was verified the patient was brought to the operating room and placed in a supine position. Anesthesia was administered per protocol. Patient was placed in modified dorsal lithotomy position and prepped and draped in a sterile fashion. Safety pause time-out was confirmed. Antibiotics have been given. A Twenty-four Citizen [place] laser cystoscope was inserted per urethra. No abnormalities were found of the anterior and bulbar urethra. The prostatic urethra shows tight bladder neck . The bladder was examined and both ureteric orifices were seen in their normal positions away from the area of interest. Bladder trabeculation Grade 2 with left J hooking intersuception. Using a GreenLight laser with initial settings of 80 arenas incisions were made at the 5 and 7 o'clock position. The incisions were taken down from the bladder neck down to the area just proximal of the veru. These were gradually deepened in order to define the lateral aspects of the median lobe area. The deep boundary of enucleation was defined by the prostate surgical capsule. Once clearly defined the grooves were extended in the lateral directions in order to create a deep groove. The median lobe was then ablated and enucleated tissue released into the bladder with the laser power increased to 120 W. Smaller lobe. Once the median lobe area had been cleared, attention was directed to the lateral lobes. Starting with the patient's left lateral lobe. First the 05:00 o'clock groove was further developed. This was moved in the lateral direction to undermine the tissue on the lateral side running from the bladder neck to the prostate apex. The ureteric orifice was used to guide incisions. The laser fiber was placed at the 1 o'clock position and a secondary groove was developed down to the level of prostatic capsule. The creation of a second deep groove defined a segment of intervening tissue similar to a slice of orange. At the apex of the prostate the laser was used to vertically link the two grooves releasing the intervening tissue and creating a segment of tissue. This tissue was then removed with a combination of enucleation and ablation working from the apex toward the bladder neck. A similar procedure was repeated on the patient's right-hand side. The only differences being the position of the lateral groove at he 7 o'clock position and the secondary groove at the 11 o'clock position, Otherwise the procedure was developed in a mirror fashion. After the majority of tissue had been debulked remnant tissue was ablated with the side fire laser and the curve of the prostate followed up each side wall clearly defining the anterior remnant strip that remained between the 11 and 1 o'clock positions. At completion debris and pieces of prostate were removed from the bladder with irrigation. Both ureteric orifices were reviewed again in shown to be patent in away from any areas of energy damage. The apical area was reviewed and any stray mucosal ooze was controlled. A 22 Citizen [place] 30 cc balloon Curry catheter was placed into the bladder using a flexible stylet. Clear efflux was obtained upon irrigation with a Thierry piston syringe. 30 cc was placed in the balloon and gentle traction was placed. A snap was used to hold tension on the catheter to control bleeding during patient moved and transported. A drainage bag was placed. Once transportation is complete to the PACU the snap will be removed. The patient tolerated the procedure well, he was extubated in the operating and transferred in a stable condition to the recovery area. Total Power 99 kW Lasing time 14:52 Pathology: Prostate tissue Drains: Curry catheter
[2024-09-19] MEDS: fentaNYL citrate/PF 100 MCG/2 ML VIAL 50 MCG IVPUSH (12:07)
[2024-09-19] MEDS: oxyCODONE HCl Immed Release 5 MG TABLET PO (12:12)
[2024-09-19] MEDS: Phenazopyridine HCL 100 MG TABLET PO (12:12)
[2024-09-19] MEDS: Acetaminophen 325 MG TABLET 975 MG PO (12:17)
== END 2024-09-19 14:12 | disposition home or self-care (01) ==
PROVIDERS: Nurse Practitioner; Visit Provider Urology
PROC: (CPT 52648; principal; 2024-09-19 10:30)
DX: N40.1 Benign prostatic hyperplasia with lower urinary tract symptoms (principal); N13.8 Other obstructive and reflux uropathy; R33.8 Other retention of urine; R39.12 Poor urinary stream; I10 Essential (primary) hypertension; Z86.11 Personal history of tuberculosis; Z79.899 Other long term (current) drug therapy; Z88.8 Allergy status to other drugs, medicaments and biological substances; Z91.018 Allergy to other foods; F12.90 Cannabis use, unspecified, uncomplicated; F14.11 Cocaine abuse, in remission; F11.11 Opioid abuse, in remission; F17.210 Nicotine dependence, cigarettes, uncomplicated; Z98.890 Other specified postprocedural states
CPT/HCPCS: 52649; 80307; 88305; J0690; J2003; J2371; J2704; J3010

== ENCOUNTER → 2024-09-19 10:06 | Outpatient (BNV) | payer MEDICARE, MEDICAID, SELFPAY | PROVIDERS: Visit Provider Urology | DX: N32.0 Bladder-neck obstruction (principal) | CPT/HCPCS: 52649 ==

== ENCOUNTER → 2024-09-21 10:29 | Outpatient (BNVA) | payer MEDICARE, SELFPAY | PROVIDERS: Visit Provider Urology | DX: N40.1 Benign prostatic hyperplasia with lower urinary tract symptoms (principal); R39.12 Poor urinary stream | CPT/HCPCS: 51700; 51798 ==

== ENCOUNTER 2024-10-24 12:44 | Emergency (ER) | payer MEDICARE, SELFPAY ==
--- NOTE | ~2024-10-24 | US_ITS ---
EXAMINATION: US TRIPLEX LOWER EXTREMITY, LEFT CLINICAL INFORMATION: Left lower extremity pain. COMPARISON: None available. TECHNIQUE: Color-flow triplex imaging with spectral analysis and compression Doppler were performed on the left lower extremity. FINDINGS: Respiratory variation, normal compression and augmented flow are noted throughout the left lower extremity. The visualized common femoral vein, superficial femoral vein, profunda femoral vein, popliteal vein and midcalf peroneal and posterior tibial venous segments show no evidence of deep venous thrombosis. There is no Vasquez's cyst. US/US venous duplex LE LT IMPRESSION: No evidence of deep venous thrombosis involving the left lower extremity. Electronically signed by: Otto Weston MD 10/24/2024 02:45 PM EDT
--- NOTE | ~2024-10-24 | XR_ITS ---
EXAMINATION: XR KNEE, LEFT CLINICAL INFORMATION: pain COMPARISON: None available. TECHNIQUE: Four views of the left knee. FINDINGS: No fracture, dislocation, or suspicious bone lesion. Normal bone mineralization. Normal alignment. Minimal medial compartment osteoarthritis. Lateral and patellofemoral compartments are preserved. Enthesopathic calcification just abutting the inferior pole of the patella. No significant joint effusion. Soft tissues appear normal. XR/XR knee LT 3V IMPRESSION: 1. No acute bony abnormality. No joint effusion. 2. Minimal medial compartment osteoarthritis. Electronically signed by: Otto Weston MD 10/24/2024 01:16 PM EDT
[2024-10-24 12:48] VITALS: BP 152/85; PULSE 100; RESP 18; TEMP 36.7; O2SAT 98; BMI 32.9
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
[2024-10-24 16:03] VITALS: BP 152/85; PULSE 100; RESP 18; TEMP 36.7; O2SAT 98
--- OUTSIDE RECORDS SUMMARY | 2024-10-24 18:18 | XMS_ITS | Encounter Summary ---
Author Organization [employer] Address [address] [place] [address] Care Team Providers Care Greenstone Polisher Operator Name Role Phone Unavailable Primary Care Provider Unavailabl e Reason for Visit * Reason Onset Date Comments medication 06/26/2023 Encounter Details Date Type Department Care Team (Late st Contact Info) Description 06/26/2023 Telephone [facility] ADULT DENTAL [address] [place] [address] Inés Obrien DDS [address] [place] [address] medication Social History Tobacco Use Types Packs/Day [...] the pharmacy that patient [facility] in [place]. He stated it should have gone to [facility]. I have updated the pharmacy in patient chart. Plsresend to [facility] in [place] documented in this encounter Plan of Treatment Not on file documented as of this encounter Visit Diagnoses Not on filedocumented in this encounter
--- OUTSIDE RECORDS SUMMARY | 2024-10-24 18:18 | XMS_ITS | Clinical Summary ---
Author Organization [employer] Address [address] [place] [address] [address] [place] [address] Care Team Providers Care Leasing Agent Name Role Phone Unavailable Primary Care Provider Unavailabl e Allergies Active Allergy Reactions Criticality Noted Date Comments Flavoring Agent (Non-Screening) 05/30 Fish Allergy 06/26/2023 Peanut Butter Flavoring Agen t (Non-Screening) 06/26/2023 Medications terazosin (Hytrin) 1 MG capsule Take 1 mg by mouth at bedtime. Active Active Problems Problem Noted Date Diagnosed Date Known health problems: none 08/30/2024 Encounters Date Type Department Care Team Description 08/30/2024 3:00 PM EST Office Visit [facility] ADULT D[facility]AL [address] [place] [address] Ricardo Martell Known health problems: none (Primary Dx) from Last 3 Months Social History Tobacco [...] Mass Index - - Plan of Treatment Health Maintenance Due Date Last Done Comments [...] 03/25/2024 2023, 01/07/2012 Dental Prophylaxis 04/10/2024 10/09/2023 Tobacco Screening 08/30/2025 08/30/2024 Dental X-Ray: Bitewings 08/31/2025 08/31/19 25, 2023 Dental X-Ray: Full Mouth 2026 2023 RSV [...] Procedure Name Priority Date/Time Associated Diagnosis Comments BITEWING - SINGLE RADIOGRAPHIC IMAGE Routine 08/30/2024 3:00 PM EST 20 INTRAORAL - PERIAPICAL FIRST RADIOGRAPHIC IMAGE Routine 08/30/2024 3:00 PM EST CASE PRESENTATION, DETAILED AND EXTENSIVE TREATMENT PLANNING Routine 08/30/2024 3:00 PM EST 20 LIMITED ORAL EVALUATION - PROBLEM FOCUSED Routine 08/30/2024 3:00 PM EST PROPHYLAXIS - ADULT Routine 10/09/2023 1 1:00 AM EDT INTRAORAL - COMPLETE SERIES OF RADIOGRAPHIC IMAGES Routine 2023 11:00 AM EDT COMPREHENSIVE ORAL EVALUATION - NEW OR ESTABLISHED PATIENT Routine 2023 11:00 AM EDT from Last 3 Months or Most Recently Relevant to Health Maintenance Insurance [employer] PPO
== END 2024-10-24 16:04 | disposition home or self-care (01) ==
PROVIDERS: Emergency Provider Emergency Medicine Emergency Medical Services
DX: R60.0 Localized edema (principal); M25.562 Pain in left knee; Z79.899 Other long term (current) drug therapy; F17.210 Nicotine dependence, cigarettes, uncomplicated
CPT/HCPCS: 73562; 93971; 99282; 99284

== ENCOUNTER → 2024-10-24 12:52 | Outpatient (BNV) | payer MEDICARE, SELFPAY | PROVIDERS: Visit Provider Radiology Diagnostic Radiology | DX: M17.12 Unilateral primary osteoarthritis, left knee (principal); M79.605 Pain in left leg | CPT/HCPCS: 73562; 93971 ==

== ENCOUNTER 2024-10-28 14:14 | Outpatient (AMB) | payer OTHER, MEDICAID, SELFPAY ==
--- NOTE | 2024-10-28 14:26 | MHC.OFFVIS ---
Intake Visit Reasons: Greenlight/PVR- follow up Intake Note: Patient is present for GREENLIGHT/PVR Urology Medication:TERAZOSIN Antibiotic Allergy:NONE Blood Thinner:NONE TODAY'S PVR:0ML'S Fellmongering Machine Operator Required: No Allergies ODIN Inhibitors [ODIN INHIBITORS] Allergy (Severe, Verified 10/28/24 14:27) ANGIOEDEMA fish derived Allergy (Intermediate, Verified 10/28/24 14:27) SWELLING Peanut Butter Allergy (Intermediate, Verified 10/28/24 14:27) Hives [facility] Medical History (Updated 10/25/24 @ 00:00 by Peter Doherty) Back pain Hx of drug abuse Shoulder pain Smoker Hx of tuberculosis HTN (hypertension) BPH (benign prostatic hyperplasia) Surgical History History of umbilical hernia repair History of shoulder surgery History of foot surgery Social History (Updated 09/15/24 @ 12:38 by Anjali Painting RN) Are you a primary caregiver assisted living to a significant other at home: No Do you presently have visiting nurse or other home services: No Alcohol intake: current Alcohol intake frequency: 0-2 drinks per day Alcohol type: hard liquor Patient Tobacco Use Status: Current everyday Tobacco user Tobacco use type: Cigarette Cigarette Packs Per Day: 0.5 Cigarettes Per Day: 3 Years Smoked: 58 Substance Use Type: Crack/Cocaine, Former Substance User and Heroin Office Procedures Post Void Residual Post Residual Void Post Void Residual (PVR): 0 67908-Bols Void Residual by ultrasound Coding CPT Codes Post Residual Void - PVR CPT Code: 66102-Bkxd Void Residual by ultrasound ([id number])
--- OUTSIDE RECORDS SUMMARY | 2024-10-28 14:32 | XMS_ITS | Clinical Summary ---
Author Organization [employer] Address [address] [place] [address] [place] [address] Care Team Providers Care Sand And Gravel Plant Operator Name Role Phone Unavailable Primary Care [...] Encounters Date Type Department Care Team Description 10/26/2024 Telephone [facility] ADULT DENTAL [address] [place] [address] Rod Ramirez DMD 08/30/2024 3:00 PM EST Office Visit [facility] ADULT DENTAL [address] [place] [address] Ricardo Martell Known health problems: none (Primary [...] Vaccines (1 of 2) 2006 COVID-19 Vaccine ( - 2023-2 5 season) 2024 Influenza Vaccine (#1) 2024 Dental Oral Exam 03/25/2024 2023, 01/07/2012 Dental Prophylaxis 04/10/2024 10/09/2023 Tobacco Screening 08/30/2025 08/30/2024 Dental X-Ray: Bitewings 08/31/2025 08/31/19, 2023 Dental X-Ray: Full Mouth 2026 2023 [...]
--- OUTSIDE RECORDS SUMMARY | 2024-10-28 14:32 | XMS_ITS | Encounter Summary ---
Author Organization [employer] Address [address] [place] [address] Care Team Providers Care Cotton Gin Yard Supervisor Name Role Phone Unavailable Primary Care Provider Unavailabl e Encounter Details Date Type Department Care Team ([facility] st Contact Info) Description 10/26/2024 Telephone [facility] ADULT DENTAL [address] [place] [address] Rod Ramirez, KRISTAL [address] [place] [address] Social History Tobacco Use Types Packs/Day Years [...] encounter Miscellaneous Notes * Telephone Encounter - Nirmala Reis - 10/26/2024 10:50 AM EDT patient called in to phillip appt with Dr. Ramirez. Last appointment pt was seen with no insurance attached. Pt been stating that he has [employer] as dental ins, but had never given us the information. I asked for insurance information bef booking any appts; pt put me on hold for more than 10 mins. I have to keep with my job duties, I hung up the call. Will call the patient later on today to see if insurance information can be given to book an appt. documented in this encounter Plan of Treatment Not on file documented as of this encounter Visit Diagnoses Not on filedocumented in this encounter
--- OUTSIDE RECORDS SUMMARY | 2024-10-28 14:32 | XMS_ITS | Encounter Summary ---
Author Organization [employer] Address [address] [place] [address] Care Team Providers Care Hand Touch Up Painter Name Role Phone Unavailable Primary Care Provider Unavailabl e Reason for Visit * Reason Onset Date Comments medication 06/26/2023 Encounter Details Date Type Department Care Team (Late st Contact Info) Description 06/26/2023 Telephone [facility] [address] [place] [address] Inés Obrien DDS [address] [place] [address] medication Social History Tobacco Use Types Packs/Day [...] [facility] [facility] in [place]. He stated it should have gone to [facility]. I have updated the pharmacy in patient chart. Plsresend to [facility] in [place] documented in this encounter Plan of Treatment Not on file documented as of this encounter Visit Diagnoses Not on filedocumented in this encounter
== END 2024-10-28 14:41 | disposition home or self-care (01) ==
LOC: HO.HUSH 14:14
PROVIDERS: Visit Provider Urology
DX: Z13.9 Encounter for screening, unspecified (principal)

== ENCOUNTER → 2024-10-28 14:14 | Outpatient (BNVA) | payer MEDICARE, SELFPAY | PROVIDERS: Visit Provider Urology | DX: N40.1 Benign prostatic hyperplasia with lower urinary tract symptoms (principal); R33.8 Other retention of urine; R39.12 Poor urinary stream | CPT/HCPCS: 51798; 81003 ==

== ENCOUNTER 2024-12-16 14:46 | Emergency (ER) | payer MEDICARE, SELFPAY ==
--- NOTE | ~2024-12-16 | CT_ITS ---
CLINICAL HISTORY: difficulty walking CT head without contrast Comparison: None provided Findings: No intra-axial mass, midline shift, hydrocephalus, or acute hemorrhage. No significant atrophy-like change or white matter disease. The visualized paranasal sinuses and mastoid air cells are normal. The orbits are unremarkable. There is no acute fracture. IMPRESSION: 1. No acute intracranial findings. This document has been electronically signed by: Andre Avalos MD on 12/16/2024 20:19:05
[2024-12-16 14:52] VITALS: BP 142/78; PULSE 108; RESP 18; TEMP 36.8; O2SAT 97; BMI 33.3
--- NOTE | 2024-12-16 14:53 | ED_ITS ---
HPI - Fall General Chief Complaint: General Medical Stated Complaint: recurring fall, dizzy Time Seen by Provider: 12/16/24 18:05 History of Present Illness ED Provider: Natasha VARGAS Narrative: The patient is a 69-year-old male who says that for the last 4 days he has felt weaker than usual. The patient is homeless and lives in a tent. he says that he has fallen at least 10 times over the last 2 days. He says that he feels his legs give out and then he falls. He has not hit his head or sustained any significant injuries in any of these falls. Today he decided to come to the hospital for evaluation. He says that he took a bus here. He denies headache, chest pain, shortness of breath, cough, sputum, abdominal pain, nausea, vomiting. He has some urinary frequency and urgency but no dysuria. The patient had prostate surgery on September 19, 3 months ago. He had laser enucleation of the prostate. This was done as an outpatient. He says the only medication he currently takes on a regular basis is terazosin. Related Data Home Medications ?Medication ?Instructions ?Recorded ?Confirmed albuterol sulfate 90 mcg/actuation 2 puff inhalation Q 4H PRN 09/15/24 12/17/24 aerosol inhaler bronchospasm/smokers cough Previous Rx's ?Medication ?Instructions ?Recorded terazosin 10 mg capsule 10 mg PO BEDTIME 30 days #30 caps 07/18/24 naproxen 500 mg tablet 500 mg PO BID PRN pain #20 t abs 10/24/24 cefuroxime axetil 250 mg tablet 250 mg PO BID #10 tabs 12/17/24 Allergies Allergy/AdvReac Type Severity Reaction Status Date / Time ODIN Inhibitors (ODIN Allergy Severe ANGIOEDEMA Verified 12/16/24 14:55 INHIBITORS) fish derived Allergy Intermediate SWELLING Verified 12/16/24 14:55 Peanut Butter Allergy Intermediate Hives Verified 12/16/24 14:55 Review of Systems 2 Review of Systems: Yes all other systems are reviewed and are negative PMF Past Medical History Medical History (Updated 12/18/24 @ 00:01 by Peter Doherty) Back pain Hx of drug abuse Shoulder pain Smoker Hx of tuberculosis HTN (hypertension) BPH (benign prostatic hyperplasia) Surgical History History of umbilical hernia repair History of shoulder surgery History of foot surgery Social History Social History (Updated 09/15/24 @ 12:38 by Anjali Painting RN) Are you a primary direct care provider to a significant other at home: No Do you presently have visiting nurse or other home services: No Alcohol intake: current Alcohol intake frequency: 0-2 drinks per day Alcohol type: hard liquor Patient Tobacco Use Status: Current everyday Tobacco user Tobacco use type: Cigarette Cigarette Packs Per Day: 0.5 Cigarettes Per Day: 3 Years Smoked: 58 Substance Use Type: Crack/Cocaine, Former Substance User and Heroin Physical Exam 2 Vital Signs: Vital Signs: Last Vital Signs Temp 97.4 F 12/17/24 14:49 Pulse 101 H 12/17/24 14:51 Resp 18 12/17/24 14:49 BP 193/105 H 12/17/24 14:51 Pulse Ox 96 12/17/24 14:51 O2 Del Method Room Air 12/17/24 14:49 BMI result Body Mass Index 33.3 Const: Other: The patient is a somewhat chronically ill-appearing 69-year-old. He was awake and alert. He looks somewhat worn out but not acutely toxic. HEENT: Other: Face is symmetrical, mucous membranes moist. Eyes: Other: Pupils are round equal, conjunctivae are clear, extraocular movements intact Neck: Neck: Yes full ROM and Yes no JVD Resp: Effort & Inspection: normal respiratory effort Auscultation: clear to auscultation bilaterally Cardio: Rate: regular rate Rhythm: regular rhythm Heart sounds: S1 normal heart sound present and S2 normal heart sound present GI: Other: Abdomen is soft and nontender Skin: Other: skin is dry and unremarkable Neuro: Other: the patient is awake and alert with a normal mental status. Cranial nerves 2- 12 are intact. He seems to have symmetrical strength in his extremities. No pronator drift. No focal weakness. He moves his extremities reasonably well and was able to walk briefly unassisted. Extrem: Other: The patient's lower extremities are somewhat thick bilaterally but there was no pitting edema. No asymmetry. No tenderness. Course Course Course Narrative: This is a Rapid Medical Examination (RME) performed by Merlyn Engel PA-C in triage. Full HPI, ROS, assessment and treatment plan per primary provider in the Main ED. 69 yo male with history of daily ETOH use (2 shots per day), BPH, arthritis and anemia who presents to the ER for evaluation of recurrent falls at home in the last 2 days. He reports 10 falls in the last 48 hours. He states his legs suddenly give out and he falls to the ground, on his knees. No injuries. Denies hitting his head or losing consciousness. Denies hx ETOH withdrawal, last drink 2 days ago. Plan: EKG, labs Reevaluation(s) Reevaluation #1: Time: 09:08 Date: 12/17/24 Provider: Shala Liu CNP Patient in physician observation for case management needs, pending physical therapy evaluation. Seen by case management yesterday. No acute events reported overnight.? No current issues or complaints. VS stable. Will continue to monitor. Remains on Ceftin for UTI pending urine culture. Reevaluation #2: Shala Liu NP 12/17/2024 15:57 Advised by nursing staff that patient elected to walk out of the emergency department. Evidently he has been found multiple times today trying to smoke a cigarette in the bathroom. Was advised that he could not do this. He wanted to go outside to smoke, did not have interested in NRT when they discuss this with him. He elected to leave the emergency department to my re-evaluation, was reported to have a steady gait. Who is being treated for urinary tract infection in the emergency department, I have sent a prescription for cefuroxime to his pharmacy on file. Medications Administered Discontinued Medications Generic Name Dose Route Start Last Admin Trade Name Ana Rosa PRN Reason Stop Dose Admin Ceftriaxone Sodium 1 gm 12/16/24 18:26 12/16/24 18:56 Ceftriaxone Sodium 1 Gm Vial IVPUSH 12/16/24 18:27 1 gm ONCE ONE Administration Cefuroxime Axetil 250 mg 12/17/24 09:00 12/17/24 08:30 Cefuroxime Axetil 250 Mg Tablet PO 250 mg BID JOLEEN Administration Sodium Chloride 1,000 mls @ 999 mls/hr 12/16/24 18:30 12/16/24 19:50 Ns IV 12/16/24 19:30 Infused .Q1H1M JOLEEN Infusion Medical Decision Making Medical Decision Making MDM Narrative: The patient is a pleasant 69-year-old male who describes himself as being homeless and living in a tent. He says that he has been falling several times over the last few days. He says that his legs simply feel weak and he collapses. He does not pass out. He has not sustained any injuries as a result of these falls he says. He says that he knows martial arts and that he knows how to fall. he denies having had any fevers. He denies any chest pain or respiratory symptoms. Denies any abdominal pain, nausea, vomiting. He admits to some urinary frequency and urgency but no definite dysuria. Testing in the emergency department reveals a urinalysis suggestive of a urinary tract infection. He has 3+ leukocyte esterase and greater than 50 white cells. However he has no leukocytosis. His white count is 4.4. His differential shows no left shift. His hemoglobin is 11.2. He has not had any recent CBC ease for comparison. His metabolic panel shows a normal carbon dioxide, mildly elevated BUN at 21, creatinine unremarkable at 1.18. LFTs are unremarkable. The patient has a nonfocal neurological exam. Head CT is negative. My working diagnosis is that he may have some degree of generalized weakness from a urinary tract infection although he does not seem frankly septic. He may also be simply deconditioned from his current living conditions. Since he does not seem to be frankly septic I do not think he requires hospitalization. I will address his possible urinary tract infection by giving him an IV dose of 1 g ceftriaxone now and will put in for 250 mg cefuroxime b.i.d. going forward. The patient will be kept in the emergency room for evaluation by physical therapy and case management tomorrow. he will be placed in physician observation. Lab Data 12/16/24 15:17 12/16/24 15:18 Labs: Lab Results 12/16/24 12/16/24 12/16/24 Range/Units 15:17 15:18 15:32 WBC 4.4 L (4.8-10.8) X10*3/uL RBC 3.69 L D (4.60-5.80) X10*6/uL Hgb 11.2 L D (14.0-18.0) g/dl Hct 33.2 L D (42.0-52.0) % MCV 90.0 (80.0-98.0) fL MCH 30.4 (27.0-33.0) pg MCHC 33.7 (31.0-36.0) g/dl RDW 14.3 (11.0-16.0) % Plt Count 201 (160-400) X10*3/uL MPV 8.6 L (9.4-12.4) fL Immature Gran % (Auto) 0.0 (0.0-0.4) % Neut % (Auto) 47.8 (45-73) % Lymph % (Auto) 36.6 (20-40) % [place] % (Auto) 11.3 H (2-11) % Eos % (Auto) 3.8 (0-4) % Baso % (Auto) 0.5 (0-2) % Lymph # (Auto) 1.6 (1.2-4.9) X10*3/uL [place] # (Auto) 0.5 (0.1-1.2) X10*3/uL Eos # (Auto) 0.2 (0.0-0.4) X10*3/uL Baso # (Auto) 0.0 (0.0-0.2) X10*3/uL Abs Immat Gran (auto) 0.00 (0.00-0.03) X10*3/uL Absolute Neuts (auto) 2.1 (2.0-8.3) x10*3/uL Absolute Nucleated RBC 0.000 (0.0-0.012) X10*3/uL Nucleated RBC % (auto) 0.0 (0.0-0.2) /100WBC Sodium 141 (135-145) mmol/L Potassium 4.1 (3.3-5.1) mmol/L Chloride 109 H (96-108) mmol/L Carbon Dioxide 25 (22-29) mmol/L Anion Gap 11 L (12-20) BUN 21 H (9-16) mg/dL Creatinine 1.18 (0.5-1.4) mg/dL Estim Creat Clear Calc 72.7 Estimated GFR > 60 Random Glucose 106 (60-115) mg/dL Calcium 8.9 D (8.4-10.2) mg/dL Magnesium 2.0 (1.6-2.6) mg/dL Total Bilirubin 0.2 (0.0-1.0) mg/dL Direct Bilirubin < 0.2 (0.0-0.5) mg/dL AST 21 (5-37) U/L ALT 14 (0-40) U/L Alkaline Phosphatase 69 (39-117) U/L Total Creatine Kinase 333 H (38-174) U/L Troponin I High Sens 4.3 (<3.5-35.0) ng/L B-Natriuretic Peptide 11 (<100) pg/mL Total Protein 6.6 (6.5-8.0) g/dL Albumin 3.6 (3.5-5.0) g/dL TSH 0.74 (0.32-4.0) uIU/mL Urine Color Yellow Urine Appearance Clear Urine pH 5.0 (5.0-9.0) Ur Specific [place] 1.025 (1.005-1.025) Urine Protein Trace (Neg-Trace) mg/dL Urine Glucose (UA) 100 H (Negative) mg/dL Urine Ketones Trace (Negative) mg/dL Urine Blood Negative (Negative) Urine Nitrite Negative (Negative) Ur Leukocyte Esterase Large (3+) H (Negative) Urine RBC 0-2 (0-2) /HPF Urine WBC >50 H (0-5) /HPF Ur Squamous Epith Cells 3-5 (0-2) /HPF Urine Bacteria None Seen (None Seen) Hyaline Casts 3-5 (0-2) /LPF Ethyl Alcohol < 10 mg/dL Discharge Plan Discharge Clinical Impression: Frequent falls, Generalized weakness, Abnormal urinalysis, Homelessness, Acute UTI Patient Disposition: Elopement Prescriptions: New cefuroxime axetil 250 mg tablet 250 mg PO BID Qty: 10 0RF No Action terazosin 10 mg capsule 10 mg PO BEDTIME 30 Days Qty: 30 4RF albuterol sulfate 90 mcg/actuation HFA aerosol inhaler 2 puff inhalation Q4H PRN (Reason: bronchospasm/smokers cough) naproxen 500 mg tablet 500 mg PO BID PRN (Reason: pain) Qty: 20 0RF Discharge Date/Time: 12/17/24 16:13 Print Language: Thai
--- NOTE | 2024-12-16 14:54 | ECG_ITS ---
Test Reason : weakness Blood Pressure : */* mmHG Vent. Rate : 97 BPM Atrial Rate : 97 BPM P-R Int : 162 ms QRS Dur : 102 ms QT Int : 378 ms P-R-T Axes : 49 -23 56 degrees QTcB Int : 480 ms Normal sinus rhythm Minimal voltage criteria for LVH, may be normal variant ( [place] product ) Prolonged QT Abnormal ECG When compared with ECG of 05-Apr-2023 21:08, No significant change was found Referred By: Monserrat Engel Electronically Signed By: Teja Walton
[2024-12-16 15:31] LABS: MANUAL DIFF FLAG NO
[2024-12-16 15:34] LABS: Basophils Percent Auto 0.5 % (0-2); Eosinophils Absolute Auto 0.2 X10*3/uL (0.0-0.4); Eosinophils Percent Auto 3.8 % (0-4); Hematocrit 33.2 % (42.0-52.0); Hemoglobin 11.2 g/dl (14.0-18.0); Lymphocytes Absolute Auto 1.6 X10*3/uL (1.2-4.9); Lymphocytes Percent Auto 36.6 % (20-40); Mean Corpuscular HGB Conc 33.7 g/dl (31.0-36.0); Mean Corpuscular Hemoglobin 30.4 pg (27.0-33.0); Mean Platelet Volume 8.6 fL (9.4-12.4); Monocytes Absolute Auto 0.5 X10*3/uL (0.1-1.2); Monocytes Percent Auto 11.3 % (2-11); Neutrophils Absolute Auto 2.1 x10*3/uL (2.0-8.3); Neutrophils Percent Auto 47.8 % (45-73); Platelet Count 201 X10*3/uL (160-400); Red Blood Count 3.69 X10*6/uL (4.60-5.80); Red Cell Distribution Width 14.3 % (11.0-16.0); White Blood Count 4.4 X10*3/uL (4.8-10.8)
[2024-12-16 15:44] LABS: Appearance Urine Clear; Color Urine Yellow; Glucose Urine UA 100 mg/dL (Negative); Leukocyte Esterase Urine Large (3+) (Negative); Nitrite Urine Negative (Negative); Specific Gravity - Urine 1.025 (1.005-1.025); UMIC TRIGGER UACC YES; Urine Blood Negative (Negative); Urine Ketones Trace mg/dL (Negative); Urine Protein Trace mg/dL (Neg-Trace)
[2024-12-16 15:50] LABS: Alanine Aminotransferase 14 U/L (0-40); Albumin Level 3.6 g/dL (3.5-5.0); Alkaline Phosphatase 69 U/L (39-117); Anion Gap 11 (12-20); Aspartate Amino Transferase 21 U/L (5-37); Bilirubin Direct < 0.2 mg/dL (0.0-0.5); Bilirubin Total 0.2 mg/dL (0.0-1.0); Blood Urea Nitrogen 21 mg/dL (9-16); Calcium 8.9 mg/dL (8.4-10.2); Carbon Dioxide 25 mmol/L (22-29); Chloride 109 mmol/L (96-108); Creatinine Clr Calc Pharmacy 72.7; Estimated Glomerular Filt Rate > 60; Glucose Random 106 mg/dL (60-115); Potassium 4.1 mmol/L (3.3-5.1); Sodium 141 mmol/L (135-145); Total Protein 6.6 g/dL (6.5-8.0)
[2024-12-16 15:53] LABS: Troponin-I High Sensitivity 4.3 ng/L (<3.5-35.0)
[2024-12-16 15:54] LABS: B Type Natriuretic Peptide 11 pg/mL (<100); Ethanol < 10 mg/dL
[2024-12-16 16:07] LABS: TSH reflex Free T4 0.74 uIU/mL (0.32-4.0)
[2024-12-16 16:31] LABS: Bacteria Urine None Seen (None Seen); RBC Urine 0-2 /HPF (0-2); UACC Culture Trigger YES; WBC Urine >50 /HPF (0-5)
[2024-12-16 18:00] VITALS: BP 144/75; PULSE 80; RESP 13; TEMP 36.9; O2SAT 100
[2024-12-16] MEDS: 0.9 % Sodium Chloride 1,000 ML 999 ML IV (18:49)
[2024-12-16] MEDS: cefTRIAXone sodium 1 GM VIAL IVPUSH (18:56)
--- NOTE | 2024-12-16 22:24 | MHC.CM.ED ---
CM met with patient at the request of Dr. Kaur. Pt is A&Ox3. Pt admits to being homeless and living in a tent. States he can live with someone in [place] if he chooses to, but does not. Pt declines to name a contact. Pt declines to complete a HCP. Pt does not have a PCP. Pt is agreeable to overnight stay with PT evaluation in the morning. Pt uses a cane and did ambulate to the bathroom independently. Pt is a aware that his insurance would have to authorize payment for STR. Pt has not been to STR. Is agreeable to local referrals. CM will follow for discharge planning
--- NOTE | 2024-12-17 07:51 | PC.NURSE ---
Addendum entered by Kia Cat RN 12/17/24 07:51: Patient is a 69-year-old male who says that for the last 4 days he has felt weaker than usual. The patient is homeless and lives in a tent. he says that he has fallen at least 10 times over the last 2 days. He says that he feels his legs give out and then he falls. He has not hit his head or sustained any significant injuries in any of these falls. Patient alert and oriented. Maladorous. Lungs clear bilat. Respirations even and non-labored. Abdomen soft, non-tender with positive bowel sounds. Positive pedal pulses with no edema. Voiding straw colored urine in the urinal. Pending case management/PT eval. Original Note: Medical History Back pain Hx of drug abuse Shoulder pain Smoker Hx of tuberculosis HTN (hypertension) BPH (benign prostatic hyperplasia)
[2024-12-17] MEDS: cefuroxime axetiL 250 MG TABLET PO (08:30)
--- NOTE | 2024-12-17 08:56 | PHA.MEDREC ---
Pharmacy Consult ? Medication Reconciliation Pharmacy has completed the medication reconciliation. Spoke with patient.
[2024-12-17 12:10] VITALS: BP 138/78; PULSE 72; RESP 18; TEMP 36.6; O2SAT 98
[2024-12-17 14:49] VITALS: BP 193/105; PULSE 101; RESP 18; TEMP 36.3; O2SAT 96
[2024-12-17 14:51] VITALS: BP 193/105; PULSE 101; O2SAT 96
--- NOTE | 2024-12-17 16:03 | PC.NURSE ---
Patient noted to be ambulating out of the department dressed. Patient stopped and informed that if he left the premises then he would have to start the process all over. Patient chose to leave the ED at this time.
== END 2024-12-17 16:13 | disposition left against medical advice (07) ==
PROVIDERS: Physician Assistant; Emergency Provider Emergency Medicine
DX: N39.0 Urinary tract infection, site not specified (principal); R82.90 Unspecified abnormal findings in urine; R26.81 Unsteadiness on feet; R53.1 Weakness; I45.81 Long QT syndrome; R11.0 Nausea; R35.0 Frequency of micturition; F17.210 Nicotine dependence, cigarettes, uncomplicated; Z91.81 History of falling; Z59.00 Homelessness unspecified; Z79.899 Other long term (current) drug therapy; Z51.81 Encounter for therapeutic drug level monitoring
CPT/HCPCS: 36415; 70450; 80048; 80076; 80307; 81001; 82550; 83735; 83880; 84443; 84484; 85025; 87086; 93005; 96361; 96374; 97162; 99284; J0696

== ENCOUNTER → 2024-12-16 14:54 | Outpatient (BNV) | payer MEDICARE, SELFPAY | PROVIDERS: Emergency Provider Emergency Medicine; Visit Provider Internal Medicine Cardiovascular Disease | DX: R94.31 Abnormal electrocardiogram [ECG] [EKG] (principal); R53.1 Weakness | CPT/HCPCS: 93010 ==

== ENCOUNTER → 2024-12-16 18:24 | Outpatient (BNV) | payer MEDICARE, SELFPAY | PROVIDERS: Emergency Provider Emergency Medicine; Visit Provider Radiology Diagnostic Radiology | DX: R26.2 Difficulty in walking, not elsewhere classified (principal) | CPT/HCPCS: 70450 ==

== ENCOUNTER 2024-12-31 11:34 | Observation (INO) | payer MEDICARE, SELFPAY ==
[2024-12-31] VITALS (9 sets, daily range): BP systolic 139–162; BP diastolic 67–92; PULSE 55–100; RESP 14–18; TEMP 36.6–36.9; O2SAT 97–100; BMI 32.5; BMI 32.2
--- NOTE | 2024-12-31 | ECG_ITS ---
Test Reason : weakness Blood Pressure : */* mmHG Vent. Rate : 73 BPM Atrial Rate : 73 BPM P-R Int : 164 ms QRS Dur : 108 ms QT Int : 414 ms P-R-T Axes : 46 -5 55 degrees QTcB Int : 456 ms Normal sinus rhythm Minimal voltage criteria for LVH, may be normal variant ( [place] product ) Nonspecific T wave abnormality Abnormal ECG When compared with ECG of 16-Dec-2024 15:23, No significant change was found Referred By: Generic ED Physician Electronically Signed By: SHIVANI MARTINEZ MD
--- NOTE | ~2024-12-31 | XR_ITS ---
CLINICAL HISTORY: syncope 1 view chest x-ray. Comparison: None Findings: The lungs are adequately expanded. No focal consolidation. No effusion or pneumothorax. Cardiac and mediastinal contours are within normal limits. No acute osseous abnormality. Impression: No acute process. This document has been electronically signed by: Paddy Light MD on 12/31/2024 13:45:43
--- NOTE | ~2024-12-31 | XR_ITS ---
CLINICAL HISTORY: Right leg numbess, weakness 3 views lumbar spine Comparison: None provided Findings: Mild multilevel marginal osteophyte formation and disc space narrowing is present. Facet arthropathy is seen at L5/S1. Vertebral body heights are well-maintained. No acute fracture or subluxation is identified. Alignment is within normal limits. Right pelvic phlebolith is noted. IMPRESSION: Mild degenerative changes in the lumbar spine. This document has been electronically signed by: Keith Desouza on 12/31/2024 17:38:40
[2024-12-31 12:10] LABS: MANUAL DIFF FLAG NO
[2024-12-31 12:12] LABS: Hematocrit 34.0 % (42.0-52.0); Hemoglobin 11.4 g/dl (14.0-18.0); Imm Gran Abs Auto 0.01 X10*3/uL (0.00-0.03); Imm Gran Pct Auto 0.2 % (0.0-0.4); Lymphocytes Absolute Auto 1.1 X10*3/uL (1.2-4.9); Mean Corpuscular HGB Conc 33.5 g/dl (31.0-36.0); Mean Corpuscular Hemoglobin 30.5 pg (27.0-33.0); Mean Corpuscular Volume 90.9 fL (80.0-98.0); NRBC Abs Auto 0.000 X10*3/uL (0.0-0.012); NRBC Pct Auto 0.0 /100WBC (0.0-0.2); Platelet Count 224 X10*3/uL (160-400); Red Blood Count 3.74 X10*6/uL (4.60-5.80); White Blood Count 5.0 X10*3/uL (4.8-10.8)
[2024-12-31 12:24] LABS: Alanine Aminotransferase 49 U/L (0-40); Albumin Level 3.5 g/dL (3.5-5.0); Alkaline Phosphatase 58 U/L (39-117); Anion Gap 10 (12-20); Aspartate Amino Transferase 65 U/L (5-37); Blood Urea Nitrogen 17 mg/dL (9-16); Calcium 8.7 mg/dL (8.4-10.2); Carbon Dioxide 25 mmol/L (22-29); Chloride 111 mmol/L (96-108); Creatinine Clr Calc Pharmacy 89.2; Estimated Glomerular Filt Rate > 60; Magnesium 2.2 mg/dL (1.6-2.6); Potassium 3.7 mmol/L (3.3-5.1); Sodium 142 mmol/L (135-145); Total Protein 6.5 g/dL (6.5-8.0)
[2024-12-31] MEDS: Lactated Ringers 1,000 ML 999 ML IV (12:25)
--- NOTE | 2024-12-31 12:28 | PC.NURSE ---
patient unable to complete orthostatic vital signs d/t increased weakness/unsteady gait. provider notified/aware. 20gIV placed in the left hand - IVF administered per provider order. plan of care ongoing. call st placed within reach.
[2024-12-31 12:31] LABS: Troponin-I High Sensitivity 3.9 ng/L (<3.5-35.0)
--- NOTE | 2024-12-31 12:51 | ED.WEAKNESS ---
HPI - Weakness General Chief complaint: Weakness Stated complaint: WEAKNESS,SYNCOPE T-1,RT LEG NUMBNESS Time Seen by Provider: 12/31/24 12:00 Source: patient and EMS Mode of arrival: EMS Limitations: no limitations History of Present Illness ED Provider: DR. Wallace HPI Narrative: 69-year-old male patient is homeless and lives in a tent, came in after was found unresponsive in the street, patient do not remember how he fell on street, last he remember he was going up the hill and was very hot outside patient stated that he is very sensitive to son, declined chest pain, no SOB. Patient was found by the police in the street on the ground. patient admitted to snorting some cocaine last night, no weakness, no numbness. Patient claimed that he has been getting more frequent syncopal episode causing him to fall. Patient in the emergency department complaining of generalized weakness, no SOB, no CP, no abdominal pain. Related Data Home Medications ?Medication ?Instructions ?Recorded ?Confirmed albuterol sulfate 90 mcg/actuation 2 puff inhalation Q4H PRN 09/15/24 12/17/24 aerosol inhaler bronchospasm/smokers cough Previous Rx's ?Medication ?Instructions ?Recorded naproxen 500 mg tablet 500 mg PO BID PRN pain #20 tabs 10/24/24 cefuroxime axetil 250 mg tablet 250 mg PO BID #10 tabs 12/17/24 terazosin 10 mg capsule 10 mg PO BEDTIME 30 days #30 caps 12/20/24 Allergies Allergy/AdvReac Type Severity Reaction Status Date / Time ODIN Inhibitors (ODIN Allergy Severe ANGIOEDEMA Verified 12/31/24 11:43 INHIBITORS) fish derived Allergy Intermediate SWELLING Verified 12/31/24 11:43 Peanut Butter Allergy Intermediate Hives Verified 12/31/24 11:43 Review of Systems Review of Systems: All other systems are reviewed and are negative Constitutional: Reports as per HPI and Reports no additional constitutional complaints Eyes: Reports as per HPI and Reports no additional eye complaints Reports system reviewed and no additional complaints, except as documented Cardiovascular: Reports as per HPI and Reports no additional cardiovascular complaints Respiratory: Reports as per HPI and Reports no additional respiratory complaints Gastrointestinal: Reports as per HPI and Reports no additional gastrointestinal complaints Genitourinary: Reports no additional female genitourinary complaints Musculoskeletal: Reports no additional musculoskeletal complaints Skin/Breast: Reports system reviewed and no additional complaints, except as docu Psychiatric: Reports no additional psychiatric complaints Endocrine: Reports no additional endocrine complaints Hematologic/Lymphatic: Reports no additional hematologic/lymphatic complaints Allergic/Immunologic: Reports no additional allergic/immunologic complaints Reports system reviewed and no additional complaints, except as documented and Reports Abnormal speech present [facility] Past Medical History Medical History Back pain Hx of drug abuse Shoulder pain Smoker Hx of tuberculosis HTN (hypertension) BPH (benign prostatic hyperplasia) Surgical History History of umbilical hernia repair History of shoulder surgery History of foot surgery Social History Social History Are you a primary career technical counselor to a significant other at home: No Do you presently have visiting nurse or other home services: No Alcohol intake: current Alcohol intake frequency: 0-2 drinks per day Alcohol type: hard liquor Patient Tobacco Use Status: Current everyday Tobacco user Tobacco use type: Cigarette Cigarette Packs Per Day: 0.5 Cigarettes Per Day: 3 Years Smoked: 58 Smoked in Last 30 Days: Yes Use of substances other than those prescribed or required for medical reasons: No Substance Use Type: Crack/Cocaine, Former Substance User and Heroin Advance Directives: No Advance Directives Information Provided: No Do you have a plan to hurt others: No Plan Physical Exam Vital Signs: Vital Signs: Last Vital Signs Temp 98.1 F 12/31/24 11:39 Pulse 86 12/31/24 12:21 Resp 18 12/31/24 11:39 BP 145/76 H 12/31/24 12:20 Pulse Ox 98 12/31/24 11:39 O2 Del Method Room Air 12/31/24 11:39 BMI result Body Mass Index 32.5 Vital signs have been reviewed and appear to be correct. Blood pressure elevated. Heart rate normal. Respiratory rate normal. Temperature normal. Oxygen saturation normal. Orthostatic vital sign was not completed because patient could not stand up. Appearance: Alert. Oriented X3. No acute distress. Head: Normal external exam. Normocephalic. Atraumatic. No [place] signs noted. No raccoon eyes noted Eyes: PERRLA. EOMI. Conjunctiva and sclera normal. Eyelids normal. ENT: TM's Normal. Pharynx normal. Uvula midline. Moist mucous membranes. No trismus noted. No drooling noted. No muffled voice noted. Neck: Normal inspection. Neck supple. FROM. No adenopathy. Thyroid Normal. No meningeal signs. No neck mass noted. CVS: Normal heart rate and rhythm. Heart sound normal. No murmurs noted. Pulses normal throughout. Respiratory: No respiratory distress. Painless inspiration. Breath sounds normal. No wheezes/rales/rhonchi noted. Chest nontender. No accessory muscle usage noted or decreased air movement noted. Abdomen: Soft and nontender. Bowel sounds normal in all 4 quadrants. No distention noted. No organomegaly noted. No visible injury noted. Back: No CVA tenderness. Full range of motion noted. Skin: Skin warm and dry. Normal skin color. Normal skin turgor. No rashes/lesions/lacerations noted. Extremities: No lower extremity edema. Extremities exhibit normal range of motion. Extremities nontender. Neuro: Mental status: Normal attention, orientation, memory, and affect. Cranial nerves: Pupils are equal, round and reactive to light, EOMI, visual espinoza are fall, face is symmetric, facial sensations are normal. Motor examination normal muscle tone, strength to 4 extremities. DTR are +2, planter's are flexor. Sensory exam; normal coordination, no ataxia, gait stable. Cerebellar exam: [id number] and [id number] is normal. Extrapyramidal system: No tremors, no rigidity with normal facial expressions. Pronator drift not present NIH Stroke Scale Time: 12:59 Level of Consciousness: Alert Level of Consciousness Questions: Answers both questions correctly Level of Consciousness Commands: Performs both tasks correctly Best Gaze: Normal Visual: No visual loss Facial Palsy: Normal Motor Arm (Right): No drift Motor Arm (Left): No drift Motor Leg (Right): No drift Motor Leg (Left): No drift Limb Ataxia: Absent Sensory: Normal Best Language: No aphasia Dysarthia: Normal Extinction and Inattention: No abnormality Score: 0 Course Reevaluation(s) Reevaluation #1: 69-year-old male who sustained a syncopal episode in street after walking in hot weather, patient overall feels generalized weakness, workup in the emergency department is unremarkable. Time: 15:13 Medications Administered Discontinued Medications Generic Name Dose Route Start Last Admin Trade Name Ana Rosa PRN Reason Stop Dose Admin Lactated Ringer's 1,000 mls @ 999 mls/hr 12/31/24 12:15 12/31/24 13:26 Lr IV 12/31/24 13:15 Infused .Q1H1M JOLEEN Infusion Medical Decision Making Differential Diagnosis Differential Diagnoses: The differential diagnosis associated with the presentation includes ( syncope, dehydration, electrolyte derangement, severe anemia, ACS, Pneumonia, pneumothorax, pleural effusion.) Admission/Observation Consideration of admission/observation: Escalation of care including admission/observation considered Consult Healthcare Provider Management of the patient was discussed with: Hospitalist ( Dr. George) Lab Data MDM Lab Attestation statement: I reviewed the patient's lab results. 12/31/24 12:05 12/31/24 12:05 Labs: Lab Results 12/31/24 Range/Units 12:05 WBC 5.0 (4.8-10.8) X10*3/uL RBC 3.74 L (4.60-5.80) X10*6/uL Hgb 11.4 L (14.0-18.0) g/dl Hct 34.0 L (42.0-52.0) % MCV 90.9 (80.0-98.0) fL MCH 30.5 (27.0-33.0) pg MCHC 33.5 (31.0-36.0) g/dl RDW 14.9 (11.0-16.0) % Plt Count 224 (160-400) X10*3/uL MPV 8.1 L (9.4-12.4) fL Immature Gran % (Auto) 0.2 (0.0-0.4) % Neut % (Auto) 64.4 (45-73) % Lymph % (Auto) 22.1 (20-40) % [place] % (Auto) 11.1 H (2-11) % Eos % (Auto) 1.6 (0-4) % Baso % (Auto) 0.6 (0-2) % Lymph # (Auto) 1.1 L (1.2-4.9) X10*3/uL [place] # (Auto) 0.6 (0.1-1.2) X10*3/uL Eos # (Auto) 0.1 (0.0-0.4) X10*3/uL Baso # (Auto) 0.0 (0.0-0.2) X10*3/uL Abs Immat Gran (auto) 0.01 (0.00-0.03) X10*3/uL Absolute Neuts (auto) 3.2 (2.0-8.3) x10*3/uL Absolute Nucleated RBC 0.000 (0.0-0.012) X10*3/uL Nucleated RBC % (auto) 0.0 (0.0-0.2) /100WBC Sodium 142 (135-145) mmol/L Potassium 3.7 (3.3-5.1) mmol/L Chloride 111 H (96-108) mmol/L Carbon Dioxide 25 (22-29) mmol/L Anion Gap 10 L (12-20) BUN 17 H (9-16) mg/dL Creatinine 1.01 (0.5-1.4) mg/dL Estim Creat Clear Calc 89.2 Estimated GFR > 60 Random Glucose 146 H (60-115) mg/dL Calcium 8.7 (8.4-10.2) mg/dL Magnesium 2.2 (1.6-2.6) mg/dL Total Bilirubin 0.3 (0.0-1.0) mg/dL AST 65 H (5-37) U/L ALT 49 H (0-40) U/L Alkaline Phosphatase 58 (39-117) U/L Troponin I High Sens 3.9 (<3.5-35.0) ng/L Total Protein 6.5 (6.5-8.0) g/dL Albumin 3.5 (3.5-5.0) g/dL Independent Interpretation I performed an independent interpretation of an: Plain X-Ray ( chest: no acute process) Radiology Impression Discussion of test interpretation with radiology: I have reviewed the radiologist's reading. Discharge Plan Discharge Clinical Impression: Syncope and collapse Patient Disposition: Admitted As Inpatient Print Language: Luxembourger
--- NOTE | 2024-12-31 15:38 | P.HPHOSP_ITS ---
History of Present Illness Date of Service: 12/31/24 Attending physician on admission: Eliel George Chief Complaint: Syncope Pt is a 69-year-old male with a PMH significant for?BPH s/p laser enucleation 08/2024, polysubstance use disorder, and homelessness who presents to the ED after being found unresponsive on a park bench by the police. Unclear whether or not Narcan was administered. Pt's story differs from that from EMS. States he was walking with his cane on the sidewalk when his right leg gave out and he fell. Denies loss of consciousness, but states was lightheaded and dizzy. Said EMS was called and brought him to the hospital. Pt reports his right leg has been numb for the past 1-2 months and felt weaker than normal, often ?giving out? and leading him to fall. Reports falling around 10 times per week for the past month or so. Occasionally reports loss of consciousness, though unclear if he ever has any head strike. Reports has been sensitive to the sun/heat since he was a kid, often getting lightheaded, dizzy, and a headache when exposed to the direct sun for 2 or more hours. Limited alcohol intake, last drink yesterday when he had 1 beer and 2 shots. Reports smoked crack cocaine sometime yesterday. Currently denies right shoulder pain. No right lower extremity pain. Denies chest pain/pressure, palpitations. No SOB or difficulty breathing. No headache. Denies fever, chills, nausea, vomiting, abdominal pain. Pt is currently homeless and alternates between living in a tent in [place] and staying at a friend's house. ? In the ED pt's vitals stable. Labs were significant for mild transaminitis of AST 65 and ALT 49, otherwise grossly unremarkable and around baseline for pt. No leukocytosis. Stable H&H. No significant electrolyte abnormalities. Renal function WNL. Troponin WNL at 3.9. CXR showed no acute process. EKG demonstrated normal sinus rhythm without evidence of significant ST elevations or depressions. Pt was treated in the ED with IVF. Pt is admitted to the hospital under observation for treatment and further evaluation of unresponsiveness concerning for OD vs dehydration. Review of Systems 2 Review of Systems: Negative except for that which is stated in the HPI. [facility] Medical History Back pain Hx of drug abuse Shoulder pain Smoker Hx of tuberculosis HTN (hypertension) BPH (benign prostatic hyperplasia) Surgical History History of umbilical hernia repair History of shoulder surgery History of foot surgery Social History Are you a primary manager urgent care to a significant other at home: No Do you presently have visiting nurse or other home services: No Alcohol intake: current Alcohol intake frequency: 0-2 drinks per day Alcohol type: hard liquor Patient Tobacco Use Status: Current everyday Tobacco user Tobacco use type: Cigarette Cigarette Packs Per Day: 0.5 Cigarettes Per Day: 3 Years Smoked: 58 Smoked in Last 30 Days: Yes Use of substances other than those prescribed or required for medical reasons: No Substance Use Type: Crack/Cocaine, Former Substance User and Heroin Advance Directives: No Advance Directives Information Provided: No Do you have a plan to hurt others: No Plan Meds Allergies Allergy/AdvReac Type Severity Reaction Status Date / Time ODIN Inhibitors (ODIN Allergy Severe ANGIOEDEMA Verified 12/31/24 11:43 INHIBITORS) fish derived Allergy Intermediate SWELLING Verified 12/31/24 11:43 Peanut Butter Allergy Intermediate Hives Verified 12/31/24 11:43 Home Medications ?Medication ?Instructions ?Recorded ?Confirmed ?Last Taken ?Type albuterol sulfate 90 mcg/actuation 2 puff inhalation Q 4H PRN 09/15/24 12/31/24 Unknown History aerosol inhaler bronchospasm/smokers cough Physical Exam 2 Vital Signs and Narrative: Vital Signs: Last Vital Signs Temp 98.1 F 12/31/24 11:39 Pulse 86 12/31/24 12:21 Resp 18 12/31/24 11:39 BP 145/76 H 12/31/24 12:20 Pulse Ox 98 12/31/24 11:39 O2 Del Method Room Air 12/31/24 11:39 BMI result Body Mass Index 32.5 General: AOx3, no acute distress. Poor hygiene, unkempt Resp: CTA bilaterally CVS: S1, S2, RRR GI: +BS, NT, no distention Skin: Warm, dry Musculoskeletal: Preserved active ROM of right shoulder. Right shoulder nontender. Neuro: Cranial nerves II-XII grossly intact bilaterally. Motor grossly intact bilaterally. Right lower leg with reduced sensation to light touch. 3/5 lower leg strength bilaterally. Extremities: No edema. Distal pedal pulses 2+ bilaterally. Psych: Appropriate affect Results Labs 12/31/24 12:05 12/31/24 12:05 Labs: Laboratory Results - last 24 hr 12/31/24 12:05 MCV 90.9 MCH 30.5 MCHC 33.5 RDW 14.9 Plt Count 224 MPV 8.1 L Immature Gran % (Auto) 0.2 Neut % (Auto) 64.4 Lymph % (Auto) 22.1 [place] % (Auto) 11.1 H Eos % (Auto) 1.6 Baso % (Auto) 0.6 Lymph # (Auto) 1.1 L [place] # (Auto) 0.6 Eos # (Auto) 0.1 Baso # (Auto) 0.0 Abs Immat Gran (auto) 0.01 Absolute Neuts (auto) 3.2 Absolute Nucleated RBC 0.000 Nucleated RBC % (auto) 0.0 Anion Gap 10 L Estim Creat Clear Calc 89.2 Estimated GFR > 60 Random Glucose 146 H Calcium 8.7 Magnesium 2.2 Total Bilirubin 0.3 AST 65 H ALT 49 H Alkaline Phosphatase 58 Troponin I High Sens 3.9 Total Protein 6.5 Albumin 3.5 Assessment and Plan (1) Unresponsiveness: Status: Acute Plan Pt is a 69-year-old male with a PMH significant for?BPH s/p laser enucleation 08/2024, polysubstance use disorder, and homelessness who presents to the ED after being found unresponsive on a park bench by the police. Pt is admitted to the hospital under observation for treatment and further evaluation of unresponsiveness concerning for OD vs dehydration. Episode of unresponsiveness Pt found by police unresponsive on a park bench; unclear if Narcan was administered Patient's story differs, reports fell due to right leg giving out Reports hx of sensitivity to the heat since he was a child Admits to smoking crack cocaine though state was yesterday Concerning for OD vs syncope vs dehydration Received IVF in the ED; will place on maintenance fluids x1L Check tox screen Monitor on telemetry Right lower leg numbness Ongoing x1-2 months Check x-ray lumbar spine Asthma Not in acute exacerbation Continue home inhaler BPH Continue terazosin Full Code Attending:?Dr. George DVT Prophylaxis: Lovenox Pt will be admitted to the hospital under observation for treatment and further evaluation of unresponsive episode concerning for syncope vs dehydration vs overdose. Pt will be given additional IVF, and observed overnight on continuous cardiac monitoring. Quality Stroke Does the patient have a stroke diagnosis?: No VTE Prior VTE?: No VTE Risk Level:: Medical - moderate - high VTE Device Contraindication: Treatment Not Indicated VTE Drug Contraindication: N/A - Med Ordered
--- NOTE | 2024-12-31 16:30 | PHA.MEDREC ---
Pharmacy Consult ? Medication Reconciliation Pharmacy has completed the medication reconciliation, spoke to patient at bedside who confirmed all meds, said he last took terazosin a few nights ago.
[2024-12-31 16:41] LABS: Cannabinoid Screen Urine Not Detected (Not Detect)
[2024-12-31] MEDS: Lactated Ringers 1,000 ML 100 ML IVCONT (16:59)
[2025-01-01 04:00] VITALS: BP 143/63; PULSE 56; RESP 18; TEMP 36.4; O2SAT 97
[2025-01-01 07:10] VITALS: BP 152/78; PULSE 61; RESP 18; TEMP 36.6; O2SAT 100
[2025-01-01 07:47] LABS: Alanine Aminotransferase 38 U/L (0-40); Albumin Level 3.2 g/dL (3.5-5.0); Alkaline Phosphatase 57 U/L (39-117); Anion Gap 12 (12-20); Aspartate Amino Transferase 44 U/L (5-37); Blood Urea Nitrogen 12 mg/dL (9-16); Calcium 8.6 mg/dL (8.4-10.2); Carbon Dioxide 26 mmol/L (22-29); Chloride 107 mmol/L (96-108); Creatinine Clr Calc Pharmacy 90.5; Estimated Glomerular Filt Rate > 60; Potassium 3.9 mmol/L (3.3-5.1); Sodium 141 mmol/L (135-145); Total Protein 6.0 g/dL (6.5-8.0)
--- NOTE | 2025-01-01 08:07 | P.PNIM_ITS ---
Subjective Subjective Date of Service: 01/01/25 Physical Exam 2 Vital Signs: Vital Signs: Last Vital Signs Temp 97.9 F 01/01/25 07:10 Pulse 61 01/01/25 07:10 Resp 18 01/01/25 07:10 BP 152/78 H 01/01/25 07:10 Pulse Ox 100 01/01/25 07:10 O2 Del Method Room Air 01/01/25 07:10 BMI result Body Mass Index 32.2 Objective Data Active Medications Acetaminophen (Acetaminophen 325 Mg Tablet) 650 mg PO Q6H PRN PRN Reason: Pain, Mild 1-3,fever,headache Albuterol Sulfate (Albuterol Sulfate 90 Mcg 8 Gm Inhaler) 2 puff INHALE Q4H PRN PRN Reason: bronchospasm/smokers cough Calcium Carbonate (Calcium Carbonate 750 Mg Tab.Chew) 750 mg PO Q4H PRN PRN Reason: Heartburn Doxazosin Mesylate (Doxazosin Mesylate 2 Mg Tablet) 8 mg PO BEDTIME [facility] Last Admin: 12/31/24 23:39 Dose: Not Given Documented By: KULWANT Non-Admin Reason: pt refuse MD aware Magnesium Hydroxide (Milk Of Magnesia 30 Ml Oral.Susp) 30 ml PO DAILY PRN PRN Reason: Constipation Melatonin (Melatonin 3 Mg Tablet) 6 mg PO BEDTIME PRN PRN Reason: Insomnia Ondansetron HCl (Ondansetron Hcl 4 Mg/2 Ml Vial) 4 mg IVPUSH Q8H PRN PRN Reason: Nausea and Vomiting Sodium Chloride (0.9 % Sodium Chloride Flush 3 Ml Syringe) 3 ml IVFLUSH QSHIFT [facility] Last Admin: 01/01/25 01:01 Dose: Not Given Documented By: KULWANT Non-Admin Reason: IV Running Labs 12/31/24 12:05 01/01/25 07:01 Labs: Laboratory Results - last 24 hr 12/31/24 12/31/24 01/01/25 12:05 16:23 07:01 MCV 90.9 MCH 30.5 MCHC 33.5 RDW 14.9 Plt Count 224 MPV 8.1 L Immature Gran % (Auto) 0.2 Neut % (Auto) 64.4 Lymph % (Auto) 22.1 [place] % (Auto) 11.1 H Eos % (Auto) 1.6 Baso % (Auto) 0.6 Lymph # (Auto) 1.1 L [place] # (Auto) 0.6 Eos # (Auto) 0.1 Baso # (Auto) 0.0 Abs Immat Gran (auto) 0.01 Absolute Neuts (auto) 3.2 Absolute Nucleated RBC 0.000 Nucleated RBC % (auto) 0.0 Hold Purple Top SEE NOTE Anion Gap 10 L 12 Estim Creat Clear Calc 89.2 90.5 Estimated GFR > 60 > 60 Random Glucose 146 H 128 H Calcium 8.7 8.6 Magnesium 2.2 Total Bilirubin 0.3 0.4 AST 65 H 44 H ALT 49 H 38 Alkaline Phosphatase 58 57 Troponin I High Sens 3.9 Total Protein 6.5 6.0 L Albumin 3.5 3.2 L Urine Opiates Screen Not Detected Ur Buprenorphine Scrn Not Detected Ur Oxycodone Screen Not Detected Urine Methadone Screen Not Detected Urine Fentanyl Screen POSITIVE H Ur Barbiturates Screen Not Detected Ur Phencyclidine Scrn Not Detected Ur Amphetamines Screen Not Detected U Benzodiazepines Scrn POSITIVE H Urine Cocaine Screen POSITIVE H U Marijuana (THC) Screen Not Detected Ethyl Alcohol < 10 Quality Stroke Does the patient have a stroke diagnosis?: No VTE Prior VTE?: No VTE Risk Level:: Medical - moderate - high VTE Device Contraindication: Treatment Not Indicated VTE Drug Contraindication: N/A - Med Ordered
--- NOTE | 2025-01-01 08:38 | PM.DS ---
DS: Providers Provider Date of Service: 01/01/25 Date of admission: 12/31/24 15:18 Date of discharge: 01/01/25 Primary care physician: None Physician DS: Diagnosis Discharge Diagnosis (1) Unresponsiveness: Status: Acute DS: Summary Hospital Course Hospital Course: From admission HPI: Date of Service: 12/31/24 Attending physician on admission: Eliel George Chief Complaint: Syncope Pt is a 69-year-old male with a PMH significant for?BPH s/p laser enucleation 08/2024, polysubstance use disorder, and homelessness who presents to the ED after being found unresponsive on a park bench by the police. Unclear whether or not Narcan was administered. Pt's story differs from that from EMS. States he was walking with his cane on the sidewalk when his right leg gave out and he fell. Denies loss of consciousness, but states was lightheaded and dizzy. Said EMS was called and brought him to the hospital. Pt reports his right leg has been numb for the past 1-2 months and felt weaker than normal, often ?giving out? and leading him to fall. Reports falling around 10 times per week for the past month or so. Occasionally reports loss of consciousness, though unclear if he ever has any head strike. Reports has been sensitive to the sun/heat since he was a kid, often getting lightheaded, dizzy, and a headache when exposed to the direct sun for 2 or more hours. Limited alcohol intake, last drink yesterday when he had 1 beer and 2 shots. Reports smoked crack cocaine sometime yesterday. Currently denies right shoulder pain. No right lower extremity pain. Denies chest pain/pressure, palpitations. No SOB or difficulty breathing. No headache. Denies fever, chills, nausea, vomiting, abdominal pain. Pt is currently homeless and alternates between living in a tent in [place] and staying at a friend's house. ? In the ED pt's vitals stable. Labs were significant for mild transaminitis of AST 65 and ALT 49, otherwise grossly unremarkable and around baseline for pt. No leukocytosis. Stable H&H. No significant electrolyte abnormalities. Renal function WNL. Troponin WNL at 3.9. CXR showed no acute process. EKG demonstrated normal sinus rhythm without evidence of significant ST elevations or depressions. Pt was treated in the ED with IVF. Pt is admitted to the hospital under observation for treatment and further evaluation of unresponsiveness concerning for OD vs dehydration. Hospital course: Pt was admitted to the hospital for episode of unresponsiveness concerning for possible overdose vs dehydration vs syncopal episode. Patient's overnight stay was uncomplicated where continuous cardiac monitoring failed to demonstrate any significant cardiac abnormality. Repeat labs showed improving mild transaminitis, otherwise unremarkable. X-ray of lumbar spine showed mild degenerative changes, otherwise no acute abnormality. Pt was resuscitated with IVF. Pt mildly hypertensive, but vitals otherwise stable and WNL. Pt seen and evaluated in his room where he had no acute medical complaints and reports he overall felt good. Denied any change to numbness in right lower extremity. No right lower extremity pain. Denies chest pain/pressure, palpitations. No SOB or difficulty breathing. No nausea, vomiting, abdominal pain. Additional review of records indicate that police department did administer Narcan 2 pt with good effect. Patient's episode of unresponsiveness likely secondary to opioid overdose. Pt has been advised that he should stay out of the sun when possible, drink plenty of fluids, and abstain from any illicit drug use. For asthma, continue home inhaler. For BPH, continue terazosin. Time Attestation Discharge Coordination Time (in mins): 32 Quality: Safe Use of Opioids Does Pt have an Active Cancer Diagnosis on the Problem List?: No Quality: Stroke Does the patient have a stroke diagnosis?: No Physical Exam Vital Signs: Vital Signs: Last Vital Signs Temp 97.9 F 01/01/25 07:10 Pulse 61 01/01/25 07:10 Resp 18 01/01/25 07:10 BP 152/78 H 01/01/25 07:10 Pulse Ox 100 01/01/25 07:10 O2 Del Method Room Air 01/01/25 07:10 BMI result Body Mass Index 32.2 General: AOx3, no acute distress. Resting comfortably in bed Resp: CTA bilaterally CVS: S1, S2, RRR GI: +BS, NT, no distention Skin: Warm, dry Neuro: Cranial nerves II-XII grossly intact bilaterally. Motor grossly intact bilaterally. Right lower leg with reduced sensation to light touch. Extremities: No edema. Distal pedal pulses 2+ bilaterally. Psych: Appropriate affect DS: Data Data Completed and Pending Labs on day of discharge: Laboratory Results - last 24 hr 12/31/24 12/31/24 01/01/25 12:05 16:23 07:01 WBC 5.0 RBC 3.74 L Hgb 11.4 L Hct 34.0 L MCV 90.9 MCH 30.5 MCHC 33.5 RDW 14.9 Plt Count 224 MPV 8.1 L Immature Gran % (Auto) 0.2 Neut % (Auto) 64.4 Lymph % (Auto) 22.1 [place] % (Auto) 11.1 H Eos % (Auto) 1.6 Baso % (Auto) 0.6 Lymph # (Auto) 1.1 L [place] # (Auto) 0.6 Eos # (Auto) 0.1 Baso # (Auto) 0.0 Abs Immat Gran (auto) 0.01 Absolute Neuts (auto) 3.2 Absolute Nucleated RBC 0.000 Nucleated RBC % (auto) 0.0 Hold Purple Top SEE NOTE Sodium 142 141 Potassium 3.7 3.9 Chloride 111 H 107 Carbon Dioxide 25 26 Anion Gap 10 L 12 BUN 17 H 12 Creatinine 1.01 0.99 Estim Creat Clear Calc 89.2 90.5 Estimated GFR > 60 > 60 Random Glucose 146 H 128 H Calcium 8.7 8.6 Magnesium 2.2 Total Bilirubin 0.3 0.4 AST 65 H 44 H ALT 49 H 38 Alkaline Phosphatase 58 57 Troponin I High Sens 3.9 Total Protein 6.5 6.0 L Albumin 3.5 3.2 L Urine Opiates Screen Not Detected Ur Buprenorphine Scrn Not Detected Ur Oxycodone Screen Not Detected Urine Methadone Screen Not Detected Urine Fentanyl Screen POSITIVE H Ur Barbiturates Screen Not Detected Ur Phencyclidine Scrn Not Detected Ur Amphetamines Screen Not Detected U Benzodiazepines Scrn POSITIVE H Urine Cocaine Screen POSITIVE H U Marijuana (THC) Screen Not Detected Ethyl Alcohol < 10 Discharge Plan Discharge Patient Disposition: Home, Self-Care Referrals: Physician,None [Primary Care Provider, Medical] - 1 Week Discharge Medications: Continued terazosin 10 mg capsule 10 mg PO BEDTIME 30 Days Qty: 30 4RF albuterol sulfate 90 mcg/actuation HFA aerosol inhaler 2 puff inhalation Q4H PRN (Reason: bronchospasm/smokers cough) Discharge Orders: Discharge Order (Routine); Ordered 01/01/25 Ordered By: Adali Chand Activity on Discharge: As tolerated Stand Alone Forms: Patient Portal Discharge page Print Language: Faroese Care Plan Goals: Resolution of symptoms See below Health Concerns: Opioid overdose Dehydration Sun exposure Plan of Treatment: You were admitted to the hospital for observation after being found unresponsiveness by the police department. Narcan was given and you responded appropriately. Unresponsiveness likely secondary to fentanyl overdose. You are encouraged to stay out of the sun as much as possible; drink plenty of water You were strongly encouraged to abstain from crack cocaine, which is currently laced with fentanyl Assessment: See discharge summary Discharge Date/Time: 01/01/25 09:46
== END 2025-01-01 09:46 | disposition home or self-care (01) ==
LOC: HO.ED 15:32 → HO.EDOVER 16:30 → HO.IMC 17:02
PROVIDERS: Admitting Provider Student in an Organized Health Care Education/Training Program; Emergency Provider Emergency Medicine; Visit Provider Internal Medicine
DX: R55 Syncope and collapse (principal); R41.89 Other symptoms and signs involving cognitive functions and awareness; R40.4 Transient alteration of awareness; R53.1 Weakness; I10 Essential (primary) hypertension; J45.909 Unspecified asthma, uncomplicated; N40.0 Benign prostatic hyperplasia without lower urinary tract symptoms; F19.90 Other psychoactive substance use, unspecified, uncomplicated; Z59.00 Homelessness unspecified; Z79.899 Other long term (current) drug therapy
CPT/HCPCS: 36415; 71045; 72100; 80053; 80307; 83735; 84484; 85025; 93005; 96360; 96361; 99222; 99285; J7120

== ENCOUNTER → 2024-12-31 11:47 | Outpatient (BNV) | payer MEDICARE, SELFPAY | PROVIDERS: Admitting Provider Student in an Organized Health Care Education/Training Program; Emergency Provider Emergency Medicine; Visit Provider Internal Medicine Cardiovascular Disease | DX: R94.31 Abnormal electrocardiogram [ECG] [EKG] (principal); R53.1 Weakness | CPT/HCPCS: 93010 ==

== ENCOUNTER → 2024-12-31 12:55 | Outpatient (BNV) | payer MEDICARE, SELFPAY | PROVIDERS: Emergency Provider Emergency Medicine; Visit Provider Radiology Vascular & Interventional Radiology | DX: R20.2 Paresthesia of skin (principal); R53.1 Weakness; R55 Syncope and collapse | CPT/HCPCS: 71045; 72100 ==

== ENCOUNTER → 2024-12-31 15:18 | Outpatient (BNV) | payer MEDICARE, SELFPAY | PROVIDERS: Admitting Provider Student in an Organized Health Care Education/Training Program; Emergency Provider Emergency Medicine; Visit Provider Student in an Organized Health Care Education/Training Program | DX: R41.89 Other symptoms and signs involving cognitive functions and awareness (principal) | CPT/HCPCS: 99222; 99239 ==

== ENCOUNTER 2025-01-09 08:44 | Outpatient (REF) | payer MEDICARE, SELFPAY ==
--- OUTSIDE RECORDS SUMMARY | 2025-01-10 08:53 | XMS_ITS | Encounter Summary ---
Author Organization [employer] Address [address] [place] [address] Care Team Providers Care Civil Preparedness Training Officer Name Role Phone Unavailable Primary Care Provider Unavailabl e Reason for Visit * Reason Onset Date Comments medication 06/26/2023 Encounter Details Date Type Department Care Team (Late st Contact Info) Description 06/26/2023 Telephone [facility] [address] [place] [address] Inés Obrien DDS [address] [place] [address] medication Social History Tobacco Use Types Packs/Day [...] that patient had on [facility] [address] in [place]. He stated it [facility] have gone to [facility]. I have updated the pharmacy in patient chart. Plsresend to [facility] in [place] documented in this encounter Plan of Treatment Not on file documented as of this encounter Visit Diagnoses Not on filedocumented in this encounter
== END 2025-01-09 08:45 | disposition home or self-care (01) ==
LOC: HO.HOSX 08:44
PROVIDERS: Visit Provider Physician Assistant
DX: Z13.89 Encounter for screening for other disorder (principal)